=== PATIENT | female | born 1940 | race Caucasian/White ===

== ENCOUNTER → 2017-03-30 | Outpatient (CLI) | payer MEDICARE ==
--- NOTE | 2017-03-31 01:02 | BD ---
EXAMINATION TYPE: MG DEXA axial skeleton. DATE OF EXAM: 03/30/2017 9:12 AM COMPARISON: NONE CLINICAL HISTORY: 69-year-old female postmenopausal screening Height: 66 IN Weight: 200 LBS FRAX RISK QUESTIONS: Alcohol (3 or more units per day): NO Family History (Parent hip fracture): NO Glucocorticoids (More than 3mos): NO (Ex: prednisone, prednisolone, methylprednisolone, dexamethasone, and hydrocortisone). History of Fracture in Adulthood: TOE FX AGE 59 Secondary Osteoporosis: 1. Type 1 Diabetes: NO 2. Hyperthyroidism: NO 3. Menopause before 45: NO 4. Malnutrition: NO 5. Chronic liver disease: NO Rheumatoid Arthritis: NO Current Tobacco Use: NO RISK FACTORS HISTORY OF: Surgery to Hip(KLEBER): When: AGE 49 Other Fractures since Age 49: YES TOE FX When: AGE 59 Active: YES Diet low in dairy products/other sources of calcium: YES Postmenopausal woman: AGE 49 Lost more than 2 inches in height since high school: YES LOST 2 3/4" MEDICATIONS: Additional Medications: CALCIUM, VIT D, aleve, OSTEO BIFLEX, PANTOPRAZOLE, FLUDROCORTISONE, NADOLOL, BABY ASPIRIN, MAGNESIUM, EXAM MEASUREMENTS: Bone mineral densitometry was performed using the [employer] System. Bone mineral density as measured about the Lumbar spine is: ----- L1-L4(G/cm2): 1.217 T Score Values are as follows: ----- L2: 0.4 ----- L3: 0.6 ----- L4: 0.2 ----- L1-L4: 0.3 Bone mineral density has: Increased 6.3% since study of: 03/26/15 PT HAD KLEBER HIP REPLACEMENT AGE 49 IMPRESSION: Normal bone mineral density as measured by T score values in the lumbar spine. Measurements were not taken at the hips due to prior bilateral hip surgery. Consider repeating this study in 5 years or axel ner as clinically indicated. NOTE: T-SCORE=SD OF THE YOUNG ADULT MEAN.
--- NOTE | 2017-03-31 11:44 | MM ---
Reason for exam: screening (asymptomatic). Last mammogram was performed 1 year ago. History: Patient is postmenopausal and history of other cancer. Family history of premenopausal breast cancer in paternal aunt at age 40. Took estrogen for 5 years. Took progesterone for 5 years. Physical Findings: A clinical breast exam by your physician is recommended on an annual basis and results should be correlated with mammographic findings. MG 3D Screening Mammo W/Cad Bilateral CC and MLO view(s) were taken. Prior study comparison: March 27, 2016, bilateral MG 3d screening mammo w/cad. March 26, 2015, bilateral MG screening mammo w CAD. There are scattered fibroglandular densities. There is no discrete abnormality. No significant changes when compared with prior studies. ASSESSMENT: Negative, BI-RAD 1 RECOMMENDATION: Routine screening mammogram of both breasts in 1 year.
== END | disposition home or self-care (01) ==
LOC: RADMAMWWP 09:07
PROVIDERS: ATTEND Family Medicine
DX: Z12.31 Encounter for screening mammogram for malignant neoplasm of breast (principal); N95.1 Menopausal and female climacteric states
CPT/HCPCS: 77080; 77063; G0202

== ENCOUNTER → 2017-06-02 | Outpatient (CLI) | payer MEDICARE ==
--- NOTE | 2017-06-02 15:26 | US ---
EXAMINATION TYPE: US kidneys/renal and bladder DATE OF EXAM: 06/02/2017 COMPARISON: NONE CLINICAL HISTORY: N39.0 Acute urinary tract infection. Hx of UTI EXAM MEASUREMENTS: Right Kidney: 9.6 x 4.9 x 4.6 cm Left Kidney: 1.0 x 4.7 x 5.7 cm Right Kidney: wnl as visualized Left Kidney: wnl as visualized Bladder: moderately distended, wnl as visualized Bilateral Jets seen There is no evidence for hydronephrosis at this point in time. No nephrolithiasis is seen. No angi s are identified. The urinary bladder is anechoic. Bilateral ureteral jets are seen. IMPRESSION: NORMAL RENAL ULTRASOUND.
== END | disposition home or self-care (01) ==
LOC: RADUSWWP 14:53
PROVIDERS: ATTEND Family Medicine
DX: N39.0 Urinary tract infection, site not specified (principal)
CPT/HCPCS: 76770

== ENCOUNTER → 2017-06-08 | Outpatient (CLI) | payer MEDICARE ==
--- NOTE | 2017-06-08 10:22 | XR ---
EXAMINATION TYPE: XR cervical spine limited DATE OF EXAM: 06/08/2017 TECHNIQUE: Frontal, lateral, and open mouth view of the cervical spine are obtained. HISTORY: M54.2 cervicalgia COMPARISON: None FINDINGS: The cervical spine is visualized in its entirety from C1 thru the top of T1 level, there i s slight grade 1 anterolisthesis of C7 on T1 without evidence of acute fracture or dislocation. The pre-vertebral soft tissue appears within normal limits. The C1-C2 articulation is suboptimally evalu ated even despite 2 attempts at open mouth view due to osseous overlap. Vertebral body heights are maintained. There is moderate disc space narrowing C2-C3 level. There is m oderate to severe disc space narrowing with mild spurring at C6-C7 level. There is partial visualizat ion of dual lead pacemaker in the upper thorax. Osseous structures are somewhat demineralized. IMPRESSION: Demineralization and multilevel degenerative change as detailed above.
== END | disposition home or self-care (01) ==
LOC: RADXRMAIN 09:48
PROVIDERS: ATTEND Physician Assistant
DX: M47.812 Spondylosis without myelopathy or radiculopathy, cervical region (principal); M81.0 Age-related osteoporosis without current pathological fracture
CPT/HCPCS: 72040

== ENCOUNTER → 2017-07-28 | Outpatient (CLI) | payer MEDICARE ==
--- NOTE | 2017-07-28 10:59 | US ---
EXAMINATION TYPE: US thyroid st tissue head/neck DATE OF EXAM: 07/28/2017 COMPARISON: Thyroid ultrasound May 20, 2016 CLINICAL HISTORY: E04.1 THYROID NODULE. GLAND SIZE: Right Lobe: 5.2 x 2.0 x 1.8 cm Overall Parenchyma: heterogenous Left Lobe: 4.3 x 2.0 x 2.1 cm Overall Parenchyma: heterogeneous Isthmus Thickness: 0..5 cm NODULES RIGHT: # of nodules measured on right: 2 largest of multiple 1. 0.5 X 0.5 x 0.4 cm hypoechoic cystic nodule at the lower pole with well-defined margins. This n odule is wider than tall and shows no intranodular vascularity. Prior size: 0.4 x 0.3 x 0.4 cm 2. 1.8 X 1.2 x 1.0 cm hypoechoic mixed nodule at the upper pole with irregular margins; central calc ification is noted. This nodule is wider than tall and shows intranodular vascularity. Prior size: 1.6 x 1.0 x 0.8 cm LEFT: # of nodules measured on left: 3 largest of multiple 1. 1.7 X 1.2 x 1.2 cm hypoechoic mixed nodule at the mid pole with well defined margins; present wi th microcalcifications. This nodule is wide as is tall and shows intranodular vascularity. Prior size: 1.6 x 1.0 x 0.8 cm 2. 0.6 X 0.5 x 0.5 cm hypoechoic mixed nodule at the upper medial pole with well-defined margins. T his nodule is wide as is tall and shows no intranodular vascularity. Prior size: 0.6 x 0.3 x 0.4 cm 3. 0.5 X 0.4 x 0.3 cm hypoechoic cystic nodule at the upper lateral pole with well-defined margins; present with microcalcification. This nodule is wider than tall and shows no intranodular vascularit y. Prior size: 0.5 x 0.4 x 0.6 cm ISTHMUS: # of nodules measured in the isthmus: 2 of multiple 1. 0.4 X 0.2 x 0.3 cm hypoechoic solid nodule at the lower right pole with well-defined margins. T his nodule is taller than wide and shows no intranodular vascularity. Prior size: no prior 2. 0.2 X 0.2 x 0.2 cm hypoechoic cystic nodule at the lower left pole with well-defined margins; int errupted peripheral calcification. This nodule is wide as is tall and shows no intranodular vascular ity. Prior size: no prior Bilateral neck scanned, no evidence of lymphadenopathy. Thyroid gland remains normal in size and heterogeneous in appearance with multiple nodules identified bilaterally. Largest nodules are stable in size and appearance and have been sampled in June 2016. IMPRESSION: Overall stable findings, multiple nodules redemonstrated. No new greater than 1 cm solid or cystic no dules are identified.
== END | disposition home or self-care (01) ==
LOC: RADUSWWP 09:36
PROVIDERS: ATTEND Surgery
DX: E04.2 Nontoxic multinodular goiter (principal)
CPT/HCPCS: 36415; 76536; 84439; 84443

== ENCOUNTER → 2018-04-02 | Outpatient (CLI) | payer MEDICARE ==
--- NOTE | 2018-04-06 10:19 | MM ---
Reason for exam: screening (asymptomatic). Last mammogram was performed 1 year ago. History: Patient is postmenopausal and history of other cancer. Family history of premenopausal breast cancer in paternal aunt at age 40. Took estrogen for 5 years. Took progesterone for 5 years. Physical Findings: A clinical breast exam by your physician is recommended on an annual basis and results should be correlated with mammographic findings. MG 3D Screening Mammo W/Cad Bilateral CC and MLO view(s) were taken. Prior study comparison: March 30, 2017, bilateral MG 3d screening mammo w/cad. March 27, 2016, bilateral MG 3d screening mammo w/cad. There are scattered fibroglandular densities. Pacemaker generator left side. No significant changes when compared with prior studies. ASSESSMENT: Negative, BI-RAD 1 RECOMMENDATION: Routine screening mammogram of both breasts in 1 year.
== END | disposition home or self-care (01) ==
LOC: RADMAMWWP 15:10
PROVIDERS: ATTEND Family Medicine
DX: Z12.31 Encounter for screening mammogram for malignant neoplasm of breast (principal)
CPT/HCPCS: 77063; 77067

== ENCOUNTER → 2018-08-03 | Outpatient (CLI) | payer MEDICARE ==
[2018-08-03 08:08] LABS: HCT 39.1 % (34.0-46.0); HGB 12.6 gm/dL (11.4-16.0); MCH 29.7 pg (25.0-35.0); MCHC 32.2 g/dL (31.0-37.0); MCV 92.2 fL (80.0-100.0); Mean Platelet Volume 7.6; Platelet Count 228 k/uL (150-450); RBC 4.23 m/uL (3.80-5.40); RDW 13.5 % (11.5-15.5); WBC 5.6 k/uL (3.8-10.6)
[2018-08-03 08:17] LABS: Appearance,Urine Cloudy (Clear); Bacteria,Urine Rare /hpf; Bilirubin,Urine Negative (Negative); Blood,Urine Small (Negative); Color,Urine Yellow; Glucose,Urine (UA) Negative (Negative); Ketones,Urine Negative (Negative); Leukocyte Esterase,Urine Large (Negative); Mucus,Urine Occasional /hpf; Nitrite,Urine Negative (Negative); Protein,Urine Negative (Negative); Prothrombin Time 9.6 sec (9.0-12.0); RBC,Urine 8 /hpf (0-5); Specific Gravity,Urine 1.012 (1.001-1.035); Squamous Epithelial Cell,Urine 6 /hpf (0-4); Urobilinogen,Urine <2.0 mg/dL (<2.0); WBC,Urine 69 /hpf (0-5)
[2018-08-03 08:19] LABS: Partial Thromboplastin Time 21.6 sec (22.0-30.0)
[2018-08-03 08:44] LABS: ALT 17 U/L (9-52); AST 22 U/L (14-36); Albumin 3.6 g/dL (3.5-5.0); Alkaline Phosphatase 90 U/L (38-126); Anion Gap 8 mmol/L; Blood Urea Nitrogen 19 mg/dL (7-17); Calcium 9.2 mg/dL (8.4-10.2); Carbon Dioxide 27 mmol/L (22-30); Chloride 109 mmol/L (98-107); Glucose 92 mg/dL (74-99); Potassium 4.3 mmol/L (3.5-5.1); Sodium 144 mmol/L (137-145); Total Bilirubin 0.6 mg/dL (0.2-1.3); Total Protein 6.3 g/dL (6.3-8.2)
== END | disposition home or self-care (01) ==
LOC: LABWHC1 06:37
PROVIDERS: ATTEND Orthopaedic Surgery
DX: Z01.812 Encounter for preprocedural laboratory examination (principal); Z79.01 Long term (current) use of anticoagulants
CPT/HCPCS: 36415; 80053; 81001; 85027; 85610; 85730; 87070

== ENCOUNTER 2018-08-17 09:12 | Inpatient (IN) | payer MEDICARE ==
[2018-08-09 11:44] VITALS: BMI 29.6
[~2018-08-17 09:12] MED LIST: ACETAMINOPHEN TAB 500 MG TAB PO ONE; CLINDAMYCIN 900 MG in DEXTROSE 5% IN WATER 50 ML IVPB ONE; DEXAMETHASONE SOD PHOSPHATE 10 MG/ML 1 ML VIAL IV ONE; HYDROmorphone 0.5 MG/0.5 ML SYRINGE IVP PRN; LIDOCAINE 1% 20 ML VIAL (10MG/ML) FOR IV START INTRADERMA PRN; MELOXICAM 7.5 MG TAB PO ONE; MIDAZOLAM 2 MG/2 ML VIAL IV PRN; ONDANSETRON 4 MG/2 ML VIAL IVP ONE; SCOPOLAMINE 1.5MG/72HR PATCH TRANSDERM ONE; TRANEXAMIC ACID 1,000 MG in SODIUM CHLORIDE 0.9% 50 ML IVPB ONE
[2018-08-17] MEDS: LACTATED RINGERS 1,000 ML IV SCH (09:41)
[2018-08-17] MEDS ORDERED: ROPIVACAINE 1,100 MG, SODIUM CHLORIDE 0.9% 330 ML MISCELLANE PRN ×2 (10:22)
--- NOTE | 2018-08-17 10:24 | P.ONQ ---
Anesthesiology Proc Note - PNB - Peripheral Nerve Block Performed Right Adductor Canal Infusion Time Out Performed: Yes Procedure Start Time: 10:06 Procedure Stop Time: :19 Indication: Acute Post-Operative Pain, Requested by physician (Dr North) Sedation Type: Sedate with meaningful contact maintained Preparation: Sterile Prep Position: Supine Catheter: Indwelling Needle Types: On-Q, Touhy Needle Size: 100mm (4") Needle Gauge: 20 Technique: Ultrasound Injectate: 0.5% Ropivacaine (see comment for volume) (30 mls) Blood Aspirated: No Pain Paresthesia on Injection Noted: No Resistance on Injection: Normal Events: Uneventful and Well Tolerated
[2018-08-17] MEDS: ROPIVACAINE 246.25 MG, EPINEPHrine 0.5 MG, KETOROLAC 30 MG, cloNIDine HCL/PF 80 MCG, WA... MISCELLANE ONE ×10 (10:49→12:13)
[2018-08-17] MEDS ORDERED: HYDROmorphone 1 MG/ML 1 ML SYRINGE IVP PRN ×3 (11:30)
[2018-08-17] MEDS ORDERED: BISACODYL 10 MG SUPP RECTAL PRN (11:30)
[2018-08-17] MEDS ORDERED: DIAZEPAM 5 MG TAB PO PRN ×2 (11:30)
[2018-08-17] MEDS ORDERED: hydrOXYzine PAMOATE 25 MG CAP PO PRN (11:30)
[2018-08-17] MEDS ORDERED: MAGNESIUM HYDROXIDE 2,400 MG/10 ML CUP PO PRN (11:30)
[2018-08-17] MEDS ORDERED: NA PHOS,M-B/NA PHOS,DI-BA 133 ML ENEMA RECTAL PRN (11:30)
[2018-08-17] MEDS ORDERED: NALOXONE 0.4 MG/ML 1 ML VIAL IV PRN (11:30)
[2018-08-17] MEDS ORDERED: ONDANSETRON 4 MG/2 ML VIAL IVP PRN (11:30)
[2018-08-17] MEDS ORDERED: CLINDAMYCIN 900 MG in DEXTROSE 5% IN WATER 50 ML IVPB SCH ×2 (12:00)
[2018-08-17] MEDS ORDERED: CLINDAMYCIN 1,800 MG in SODIUM CHLORIDE 0.9% IRRIGATIO 3,000 ML IRRIGATION ONE (12:11)
[2018-08-17] MEDS ORDERED: LACTATED RINGERS 1,000 ML IV ONE ×2 (12:57)
--- NOTE | 2018-08-17 13:06 | P.OP ---
Date of Procedure: 08/17/18 Preoperative Diagnosis: Severe osteoarthritis right knee Postoperative Diagnosis: Severe osteoarthritis right knee Procedure(s) Performed: Right total knee arthroplasty Implants: Horton [employer]hew Oxinium femoral component size 6, right Horton & Nephew Destinee II right nonporous tibial baseplate size 5 Horton [employer] Nephew size 11 mm Legion XLPE dished articular insert, size 5-6 Horton [employer] Destinee II resurfacing patellar component, 32 mm All components were cemented using Adry bone cement.. The articulation is Oxinium on polyethylene. Anesthesia: spinal Surgeon: Tom North Bell Cleaner #1: Violeta Torres Estimated Blood Loss (ml): 50 Pathology: other (Bone and cartilage) Condition: stable Disposition: PACU Indications for Procedure: After failure of conservative treatment we discussed the surgical and nonsurgical treatment options at length. Patient wishes to proceed with a total knee arthroplasty. Complications specific to this procedure were discussed at length, including but not limited to infection, bleeding, stiffness , and nerve injury. Patient is aware of all these complications and informed consent was obtained Operative Findings: The operative findings are consistent with severe osteoarthritis of the right knee Description of Procedure: Patient was seen in the preoperative area consent was reviewed and operative site was marked with a skin marker. An adductor canal pain catheter was placed by anesthesia in the preoperative area. Patient was then brought to the operating room and given preoperative antibiotics intravenously. A spinal anesthetic was administered by the anesthesia department. A tourniquet was placed on the upper thigh and the lower extremity was prepped and draped in usual sterile fashion. A gram of transexamic acid was given. A universal timeout was then performed which confirmed the patient's name, surgical site, ALLERGIES, and consent. The lower extremity was then exsanguinated and tourniquet was inflated to 250 mmHg. A standard and anterior midline approach to the knee was performed. The skin and subcutaneous tissue was dissected down to the patellar tendon. A medial parapatellar arthrotomy was then performed. The knee was then extended, the patellar was everted, and the knee was again flexed. Anterior horns of both menisci were excised, and a release was performed to the posterior medial aspect of the knee. On gross visual inspection, there was complete loss of articular cartilage in the medial and patellofemoral joint spaces. There was also significant cartilage damage in the lateral compartment. There were multiple periarticular osteophytes which were then removed with a Ronguer. The femoral canal was then opened with the appropriate drill, and the intramedullary femoral cutting guide was then placed and set for 4 of valgus. The distal femoral cutting block was then pinned in place, and the distal femur was then cut. The cutting block was then removed and the cut was checked for flatness. Next, the sizing guide was then placed and set for 3 external rotation based off of the epicondylar axis and Whitesides line. After the femur was sized, the appropriate 4-in-1 cutting block was then pinned in place. The anterior condyles were cut without notching. The posterior and chamfer cuts were performed while protecting the collateral ligaments. The cutting block was then removed, and the femoral canal was plugged with autologous bone. Attention was then directed to the tibia. The remaining ACL was removed with a Ronguer, and the tibia was then gently subluxed forward with a large bent knee retractor. Any remaining menisci was excised. The posterior lateral corner was cauterized in order to cauterize the lateral geniculate artery. The extra medullary tibial cutting guide was then placed, set for the appropriate rotation , slope, and depth of resection. The proximal tibia cutting guide was then pinned in place. Proximal tibia was then cut and sized. Next trials were then placed with the appropriate-sized insert. The knee was able to fully extend and flex to 130 and was stable throughout all range of motion. The knee was then extended, patella everted. Patella was then measured, and then using an osteotomy guide, the patella was cut at the appropriate level. The patella was then measured and drilled and the patella trial was then placed. The knee was then taken through range of motion with the patella trial and the patella tracked normally. The knee was then extended patella trial was then removed and the patella was everted. Knee was then flexed and lug holes were drilled through the femoral trial and the femoral trial was then removed. The tibial was then exposed, and the tibial broach guide was then pinned in place after it was set for the appropriate rotation to allow for the most coverage without overhang. The tibia was then reamed and broached. The cut surfaces of bone were then irrigated with pulsatile lavage. The posterior structures were injected with the ropivacaine solution. The knee was also irrigated with Irrisept solution. The components were then opened, the cement was mixed, and the components were then cemented in place. The cement was allowed to harden with the knee in full extension. While the cement was hardening, the remaining soft tissues were then injected with a ropivacaine solution, which consisted of 246.25 mg of ropivacaine, 0.5 mg of epinephrine, 30 mg of Toradol, 80 g of clonidine, and 48.45 mL of sterile water, for a total of 100 mL of fluid injected. After the cemented hardened. The tourniquet was released, and hemostasis was obtained. A second gram of transexamic acid was given. The knee was again irrigated. The knee was again taken through range of motion and found to be stable throughout all range of motion of 0-130 , and the patella tracked normally. The fascia was then closed with #2 strata fix suture. The subcutaneous tissue was closed with 3-0 Vicryl and 3-0 strata fix. Dermabond glue was used for the skin and placed with the knee in flexion. The patient was placed in a sterile silver dressing. Patient was then transferred to recovery room in stable condition. The engineering assistant HERNAN Hoyos was required due the complexity surgery and the need for a skilled nurse practitioner physician assistant. She assisted in positioning, draping, retraction, and closure of the wound.
--- NOTE | 2018-08-17 14:02 | XR ---
EXAMINATION TYPE: XR knee limited RT DATE OF EXAM: 08/17/2018 COMPARISON: NONE HISTORY: 78-year-old female evaluation for postoperative abnormality and alignment TECHNIQUE: Multiple 2 views FINDINGS: Images show placement of right total knee arthroplasty. Both distal femoral and proximal tibial compo nents of the prosthesis are well seated without periprosthetic fracture. Alignment grossly anatomic. There is anterior soft tissue swelling with soft tissue air as well as joint effusion and intra-artic ular air compatible with recent operation. IMPRESSION: Uncomplicated postoperative appearance right total knee arthroplasty.
[2018-08-17] MEDS: SODIUM CHLORIDE 0.9% 1,000 ML IV SCH ×2 (15:51→20:46)
[2018-08-17] MEDS: HYDROcodone/APAP 5-325MG 1 EACH TAB PO PRN ×2 (16:23→22:07)
--- NOTE | 2018-08-17 17:38 | P.CONS ---
History of Present Illness - History of Present Illness 78-year-old female is postoperative for right knee that total replacement. Patient awake and alert and comfortable at this time. Patient noted to have coronary disease with a a pacemaker, GERD osteoarthritis Review of Systems Musculoskeletal: right: knee pain Past Medical History Past Medical History: Eye Disorder, GERD/Reflux, Myocardial Infarction ([place]), Osteoarthritis (OA), Thyroid Disorder Additional Past Medical History / Comment(s): hiatal hernia, sodium imbalance, dry eyes, pacemaker Last Myocardial Infarction Date:: unknown History of Any Multi-Drug Resistant Organisms: None Reported Past Surgical History: Joint Replacement, Orthopedic Surgery, Pacemaker Additional Past Surgical History / Comment(s): alice hip replacements, rt hip revision, alice foot surgeries, cataract surg., skin lesions removed from nose and back Past Anesthesia/Blood Transfusion Reactions: Motion Sickness Type of Cardiac Device: Permanent Pacemaker Device Placement Date:: 12/27/11 Past Psychological History: No Psychological Hx Reported Smoking Status: Former smoker Past Alcohol Use History: Occasional Additional Past Alcohol Use History / Comment(s): quit smoking in 1961 Past Drug Use History: None Reported - Past Family History Mother Family Medical History: No Reported History Medications and Allergies Home Medications Medication Instructions Recorded Confirmed Type Calcium Carbonate/Vitamin D3 1 tab PO DAILY 11/20/14 08/17/18 History [Calcium 600 + Vit D Tablet] Cholecalciferol [Vitamin D3] 1,000 unit PO DAILY 11/20/14 08/17/18 History Fludrocortisone [Florinef] 0.1 mg PO DAILY 11/20/14 08/17/18 History Naproxen Sodium [Aleve] 220 mg PO QAM 11/20/14 08/17/18 History Nadolol [Corgard] 20 mg PO DAILY 06/25/15 08/17/18 History Acetaminophen [Tylenol] 1,000 mg PO DAILY 03/24/16 08/17/18 History Aspirin 81 mg PO DAILY 06/26/16 08/17/18 History Glucosamine/Chondr Means A Sod [Osteo 1 tab PO BID 08/09/18 08/17/18 History Bi-Flex Caplet] Pantoprazole [Protonix] 40 mg PO DAILY 08/09/18 08/17/18 History Propylene Glycol/Peg 400/Pf 1 dropper BOTH EYES DAILY 08/09/18 08/17/18 History [Systane 0.3-0.4% Eye Drops] Allergies Allergy/AdvReac Type Severity Reaction Status Date / Time cephalexin Allergy SOB Verified 08/17/18 15:20 Physical Exam Vitals: Vital Signs Temp Pulse Pulse Resp BP Pulse Ox 08/17/18 15:45 65 142/81 08/17/18 15:30 68 121/66 08/17/18 15:15 97.4 F L 68 12 139/79 95 08/17/18 14:30 67 16 129/65 96 08/17/18 14:15 65 16 130/67 96 08/17/18 14:00 63 16 138/63 100 08/17/18 13:45 68 16 130/60 100 08/17/18 13:32 96.8 F L 60 16 122/57 98 08/17/18 10:19 55 L 16 184/77 98 08/17/18 09:25 97.9 F 58 L 16 139/73 97 Intake and Output 08/17/18 08/17/18 08/17/18 06:59 14:59 22:59 Intake Total 1657 Output Total 250 Balance 1407 Intake: IV 1657 Output: Urine 200 Estimated Blood Loss 50 Other: Weight 88.451 kg - Constitutional General appearance: mild distress - EENT Eyes: PERRLA Ears: bilateral: normal - Neck Neck: normal ROM - Respiratory Respiratory: bilateral: CTA - Cardiovascular Rhythm: regular - Gastrointestinal General gastrointestinal: soft - Integumentary Integumentary: normal - Neurologic Neurologic: CNII-XII intact - Psychiatric Psychiatric: A&O x's 3, appropriate affect, intact judgment & insight Assessment and Plan Plan: Assessment Right knee osteoarthritis with total knee replacement History of coronary disease with [place] and pacemaker GERD Sodium imbalance Hypothyroidism Plan We'll monitor patient for change in condition
[2018-08-17] MEDS: CLINDAMYCIN 900 MG in DEXTROSE 5% IN WATER 50 ML IVPB SCH ×2 (17:50)
[2018-08-17] MEDS: ASPIRIN 325 MG TAB PO SCH (20:46)
[2018-08-17] MEDS: SENNOSIDES-DOCUSATE SODIUM 1 EACH TAB PO SCH (20:46)
[2018-08-18] MEDS: CLINDAMYCIN 900 MG in DEXTROSE 5% IN WATER 50 ML IVPB SCH ×2 (00:05)
[2018-08-18] MEDS: HYDROcodone/APAP 5-325MG 1 EACH TAB PO PRN ×4 (04:42→22:35)
[2018-08-18] MEDS: LACTATED RINGERS 1,000 ML IV SCH (05:17)
--- NOTE | 2018-08-18 06:01 | P.PN ---
Progress Note - Text Progress Note Date: 08/18/18 78 yo female status post left total knee replacement. Patient received the adductor canal catheter. Ropivacaine 0.2% at 8 mls/hr. Patient was seen today at 6:00 AM. Patient had a good night sleep. Adequate pain control. VAS score of 0/10 no complains overnight. Assessment and plan: patient will be sent home with the adductor canal pump. Adequate pain control.
[2018-08-18 07:58] LABS: ALT 23 U/L (9-52); AST 22 U/L (14-36); Albumin 2.9 g/dL (3.5-5.0); Alkaline Phosphatase 73 U/L (38-126); Anion Gap 6 mmol/L; Blood Urea Nitrogen 15 mg/dL (7-17); Calcium 8.4 mg/dL (8.4-10.2); Carbon Dioxide 27 mmol/L (22-30); Chloride 108 mmol/L (98-107); Glucose 90 mg/dL (74-99); Potassium 3.9 mmol/L (3.5-5.1); Sodium 141 mmol/L (137-145); Total Bilirubin 0.4 mg/dL (0.2-1.3); Total Protein 5.3 g/dL (6.3-8.2)
[2018-08-18 08:07] LABS: Basophils % (A) 0 %; Eosinophils # (A) 0.1 k/uL (0-0.7); Eosinophils % (A) 1 %; HCT 34.3 % (34.0-46.0); HGB 10.7 gm/dL (11.4-16.0); Lymphocytes # (A) 1.7 k/uL (1.0-4.8); Lymphocytes % (A) 15 %; MCH 29.6 pg (25.0-35.0); MCHC 31.3 g/dL (31.0-37.0); MCV 94.7 fL (80.0-100.0); Mean Platelet Volume 7.4; Monocytes # (A) 0.5 k/uL (0-1.0); Monocytes % (A) 4 %; Neutrophils # (A) 8.7 k/uL (1.3-7.7); Neutrophils % (A) 78 %; Platelet Count 203 k/uL (150-450); RBC 3.62 m/uL (3.80-5.40); RDW 13.3 % (11.5-15.5); WBC 11.1 k/uL (3.8-10.6)
[2018-08-18] MEDS: ASPIRIN 325 MG TAB PO SCH ×2 (08:24→20:07)
[2018-08-18] MEDS: ARTIFICIAL TEARS-HYPROMELLOSE DROPS 15 ML BTL BOTH EYES SCH (08:24)
[2018-08-18] MEDS: PANTOPRAZOLE 40 MG TABLET PO SCH (08:24)
[2018-08-18] MEDS: FLUDROCORTISONE 0.1 MG TAB PO SCH (08:24)
[2018-08-18] MEDS: MELOXICAM 7.5 MG TAB PO SCH (08:25)
[2018-08-18] MEDS: NADOLOL 20 MG TAB PO SCH (08:25)
--- NOTE | 2018-08-18 09:04 | P.DS ---
Providers Date of admission: 08/17/18 09:12 Expected date of discharge: 08/18/18 Attending physician: Tom North Consults: 08/17/18 11:30 Consult Physician Routine Consulting Provider: Inderjit Snatos Consult Reason/Comments: medical management Do you want consulting provider notified?: Yes Primary care physician: Inderjit Santos - Discharge Diagnosis(es) (1) Primary osteoarthritis of right knee Current Visit: Yes Status: Acute (2) S/P total knee arthroplasty Current Visit: Yes Status: Acute Hospital Course: This is a 78-year-old female with known history of degenerative arthritis of the right knee. The patient presents for evaluation. After discussion and consideration patient elects to proceed with total knee arthroplasty. The patient is seen preoperatively by Dr. North and medically cleared for surgery by their primary care physician. Patient is admitted to [facility] on 08/18/2018 for total knee arthroplasty. The procedures performed without complication or sequelae. The patient is doing well postoperatively. Labs and vital signs are stable on day of discharge. On day of discharge patient's knee incision is healing well. There is minimal erythema. There is no drainage noted at this time. There is minimal soft tissue swelling to the knee. Patient has full foot and ankle motion without difficulty or pain. Neurovascular status to the right lower extremity is intact. Patient is discharged home in good condition. Please see med rec for accurate list of home medications. Plan - Discharge Summary Discharge Rx Participant: Yes New Discharge Prescriptions: New Aspirin 325 mg PO BID #60 tab HYDROcodone/APAP 5-325MG [[place] 5-325] 1 - 2 tab PO Q4-6H PRN #84 tab PRN Reason: Pain Sennosides [Senokot] 1 tab PO BID #60 tablet No Action Fludrocortisone [Florinef] 0.1 mg PO DAILY Calcium Carbonate/Vitamin D3 [Calcium 600 + Vit D Tablet] 1 tab PO DAILY Naproxen Sodium [Aleve] 220 mg PO QAM Cholecalciferol [Vitamin D3] 1,000 unit PO DAILY Nadolol [Corgard] 20 mg PO DAILY Acetaminophen [Tylenol] 1,000 mg PO DAILY Aspirin 81 mg PO DAILY Propylene Glycol/Peg 400/Pf [Systane 0.3-0.4% Eye Drops] 1 dropper BOTH EYES DAILY Pantoprazole [Protonix] 40 mg PO DAILY Glucosamine/Chondr Means A Sod [Osteo Bi-Flex Caplet] 1 tab PO BID Discharge Medication List Calcium Carbonate/Vitamin D3 [Calcium 600 + Vit D Tablet] 1 tab PO DAILY [History] Cholecalciferol [Vitamin D3] 1,000 unit PO DAILY 11/20/14 [History] Fludrocortisone [Florinef] 0.1 mg PO DAILY 11/20/14 [History] Naproxen Sodium [Aleve] 220 mg PO QAM 11/20/14 [History] Nadolol [Corgard] 20 mg PO DAILY 06/25/15 [History] Acetaminophen [Tylenol] 1,000 mg PO DAILY 03/24/16 [History] Aspirin 81 mg PO DAILY 06/26/16 [History] Glucosamine/Chondr Means A Sod [Osteo Bi-Flex Caplet] 1 tab PO BID 08/09/18 [ History] Pantoprazole [Protonix] 40 mg PO DAILY 08/09/18 [History] Propylene Glycol/Peg 400/Pf [Systane 0.3-0.4% Eye Drops] 1 dropper BOTH EYES DAILY 08/09/18 [History] Aspirin 325 mg PO BID #60 tab 08/18/18 [Rx] HYDROcodone/APAP 5-325MG [[place] 5-325] 1 - 2 tab PO Q4-6H PRN #84 tab 08/18/18 [ Rx] Sennosides [Senokot] 1 tab PO BID #60 tablet 08/18/18 [Rx] Follow up Appointment(s)/Referral(s): Tom North DO [Doctor of Osteopathic Medicine] - 2 Weeks Ambulatory/Diagnostic Orders: Continuous Passive Motion (CPM) Machine [DME.AMB1] Time Frame: 3 Weeks, Location : None Selected Activity/Diet/Wound Care/Special Instructions: Weightbearing as tolerated with a walker CPM 5-6h daily Leave dressing intact. May be removed by home care nurse in 10 days. May shower with dressing on. Please call [facility] with any questions or concerns, Discharge Disposition: HOME WITH HOME HEALTH SERVICES
[2018-08-18] MEDS: CALCIUM CARB-VIT D 500MG-200UN 1 EACH TAB PO SCH (11:20)
--- NOTE | 2018-08-18 12:39 | P.PN ---
Subjective Patient resting in bed states adequate pain control. Patient medically stable for discharge Objective - Vital Signs Vital signs: Vital Signs Temp 98.3 F 08/18/18 07:10 Pulse 64 08/18/18 07:10 Resp 18 08/18/18 07:10 BP 130/71 08/18/18 07:10 Pulse Ox 95 08/18/18 07:10 Intake & Output 08/17/18 08/18/18 08/18/18 18:59 06:59 18:59 Intake Total 1657 1845 350 Output Total 250 200 Balance 1407 1845 150 Weight 88.451 kg Intake: IV 1657 Intake, IV Titration 765 Amount Clindamycin 900 mg In 50 Dextrose 5% in Water 50 ml @ 50 mls/hr IVPB Q6HR [facility] Rx#:[id number] Sodium Chloride 0.9% 1, 715 000 ml @ 65 mls/hr IV . [id number] [facility] Rx#:[id number] Oral 1080 350 Output: Urine 200 200 Estimated Blood Loss 50 Other: Voiding Method Toilet # Voids 3 - Constitutional General appearance: Present: mild distress - EENT Eyes: Present: PERRLA Ears: bilateral: normal - Neck Neck: Present: normal ROM - Respiratory Respiratory: bilateral: CTA - Cardiovascular Rhythm: regular - Gastrointestinal General gastrointestinal: Present: soft - Integumentary Integumentary: Present: normal - Neurologic Neurologic: Present: CNII-XII intact - Psychiatric Psychiatric: Present: A&O x's 3, appropriate affect, intact judgment & insight - Labs CBC & Chem 7: 08/18/18 06:33 08/18/18 06:33 Labs: Abnormal Lab Results - Last 24 Hours (Table) 08/18/18 08/18/18 Range/Units 06:33 06:33 WBC 11.1 H (3.8-10.6) k/uL RBC 3.62 L (3.80-5.40) m/uL Hgb 10.7 L (11.4-16.0) gm/dL Neutrophils # 8.7 H (1.3-7.7) k/uL Chloride 108 H (98-107) mmol/L Total Protein 5.3 L (6.3-8.2) g/dL Albumin 2.9 L (3.5-5.0) g/dL Assessment and Plan Assessment: Assessment Osteoarthritis right knee with right arthroplasty History of coronary disease with [place] GERD Sodium imbalance Hypothyroidism History of pacemaker Plan Patient medically stable for discharge
[2018-08-18] MEDS ORDERED: SODIUM CHLORIDE 0.9% 500 ML IV ONE (13:41)
[2018-08-18] MEDS: SODIUM CHLORIDE 0.9% 1,000 ML IV SCH ×2 (16:31→20:07)
[2018-08-18] MEDS: SENNOSIDES-DOCUSATE SODIUM 1 EACH TAB PO SCH (20:07)
[2018-08-19] MEDS: HYDROcodone/APAP 5-325MG 1 EACH TAB PO PRN ×2 (04:32→11:18)
[2018-08-19] MEDS: LACTATED RINGERS 1,000 ML IV SCH (04:50)
[2018-08-19 07:43] VITALS: RESP 16
[2018-08-19] MEDS: FLUDROCORTISONE 0.1 MG TAB PO SCH (08:56)
[2018-08-19] MEDS: MELOXICAM 7.5 MG TAB PO SCH (08:56)
[2018-08-19] MEDS: PANTOPRAZOLE 40 MG TABLET PO SCH (08:56)
[2018-08-19] MEDS: ASPIRIN 325 MG TAB PO SCH (08:57)
[2018-08-19] MEDS: ARTIFICIAL TEARS-HYPROMELLOSE DROPS 15 ML BTL BOTH EYES SCH (08:58)
[2018-08-19] MEDS: NADOLOL 20 MG TAB PO SCH (08:58)
--- NOTE | 2018-08-19 11:14 | P.PN ---
Subjective 78-year-old female had a near-syncopal episode yesterday afternoon. Feels weak at this time. Noted to be hypotensive IV fluids restarted cardiology consultation ordered Objective - Vital Signs Vital signs: Vital Signs Temp 97.9 F 08/19/18 07:00 Pulse 63 08/19/18 07:00 Resp 16 08/19/18 07:00 BP 112/64 08/19/18 07:00 Pulse Ox 94 L 08/19/18 07:00 Intake & Output 08/18/18 08/19/18 08/19/18 18:59 06:59 18:59 Intake Total 890 2220 360 Output Total 200 Balance 690 2220 360 Intake: Intake, IV Titration 660 Amount Sodium Chloride 0.9% 1, 660 000 ml @ 65 mls/hr IV . [id number] [facility] Rx#:[id number] Oral 890 1560 360 Output: Urine 200 Other: Voiding Method Toilet # Voids 1 2 # Bowel Movements 0 # Emeses 0 - Constitutional General appearance: Present: mild distress - EENT Eyes: Present: PERRLA Ears: bilateral: normal - Neck Neck: Present: normal ROM - Respiratory Respiratory: bilateral: CTA - Cardiovascular Rhythm: regular - Gastrointestinal General gastrointestinal: Present: soft - Integumentary Integumentary: Present: normal - Neurologic Neurologic: Present: CNII-XII intact - Musculoskeletal Musculoskeletal: Present: generalized weakness - Psychiatric Psychiatric: Present: A&O x's 3, appropriate affect, intact judgment & insight - Labs CBC & Chem 7: 08/18/18 06:33 08/18/18 06:33 Assessment and Plan Assessment: Assessment Right knee osteoarthritis post total right arthroplasty History of coronary disease with [place] GERD Sodium imbalance Hypothyroidism Hypotensive episode history of pacemaker Plan Cardiology consultation EKG and repeat labs
[2018-08-19] MEDS: CALCIUM CARB-VIT D 500MG-200UN 1 EACH TAB PO SCH (11:18)
--- NOTE | 2018-08-19 11:54 | CDI ---
Last Revision, October 2017 Documentation Clarification Form Date: 08/19/18 From: Aspen David RN, CCDS Admit Date: 08/17/2018 9:12:00 AM Patient Name: Sheron Rodriguez Visit Number: [id number] Discharge Date: ATTENTION: The Clinical Documentation Specialists (CDI) and [facility] Coding Staff appreciate your assistance in clarifying documentation. Please respond to the clarification below the line at the bottom and electronically sign. The CDI & [facility] Coding staff will review the response and follow-up if needed. Please note: Queries are made part of the Legal Health Record. If you have any questions, please contact the author of this message via ITS. Inderjit Sal MD Hypotension is documented in the progress notes on 08/18/18. History/Risk Factors: Heart disease with pacemaker, GERD, [place] date unknown, Former smoker Clinical Indicators: Patient on 08/18/18 noted to have a near-syncope episode. Noted to be hypotensive. Patients B/P: 10: 13:18 68/48, 13:20 88/56, 13:23 91/57 Labs: WBC 11.1, HGB 10.1, HCT 34.3 Treatment: Monitor vital signs IV Fluids bolus In your professional opinion, can you please further specify the etiology of the hypotension and clinical significance if known? Orthostatic Hypotension Postural Hypotension Drug Induced Hypotension Other Condition, please specify Unable to determine Please continue to document in your progress notes in order to capture severity of illness and risk of mortality. Include clinical findings that support your diagnosis. MTDD
[2018-08-19 12:33] LABS: Basophils % (A) 0 %; Eosinophils # (A) 0.2 k/uL (0-0.7); Eosinophils % (A) 3 %; HCT 31.8 % (34.0-46.0); HGB 10.3 gm/dL (11.4-16.0); Lymphocytes # (A) 1.5 k/uL (1.0-4.8); Lymphocytes % (A) 24 %; MCH 29.9 pg (25.0-35.0); MCHC 32.3 g/dL (31.0-37.0); MCV 92.7 fL (80.0-100.0); Mean Platelet Volume 7.6; Monocytes # (A) 0.4 k/uL (0-1.0); Monocytes % (A) 7 %; Neutrophils # (A) 3.9 k/uL (1.3-7.7); Neutrophils % (A) 63 %; Platelet Count 193 k/uL (150-450); RBC 3.43 m/uL (3.80-5.40); RDW 13.5 % (11.5-15.5); WBC 6.2 k/uL (3.8-10.6)
[2018-08-19 12:56] LABS: ALT 25 U/L (9-52); AST 29 U/L (14-36); Albumin 2.9 g/dL (3.5-5.0); Alkaline Phosphatase 87 U/L (38-126); Anion Gap 6 mmol/L; Blood Urea Nitrogen 10 mg/dL (7-17); Calcium 8.3 mg/dL (8.4-10.2); Carbon Dioxide 24 mmol/L (22-30); Chloride 110 mmol/L (98-107); Glucose 91 mg/dL (74-99); Potassium 3.8 mmol/L (3.5-5.1); Sodium 140 mmol/L (137-145); Total Bilirubin 0.6 mg/dL (0.2-1.3); Total Protein 5.3 g/dL (6.3-8.2)
[2018-08-19 14:48] VITALS: BP 138/74; PULSE 69; TEMP 98
--- NOTE | 2018-08-19 15:22 | P.CRDCN ---
History of Present Illness History of present illness: Mrs. 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 She denies history of coronary artery disease. She follows with Dr. Diallo in the office. We have been asked to see her in consultation for near syncope and hypotension. She states yesterday she walked to the restroom and urinated. Upon standing she started feeling very dizzy and light headed. She was able to walk back to her chair and quickly sat down just before she felt as if she was going to pass out. There was no LOC. Blood pressure obtained at that time was 68/48, 88/56 and 91/57. Heart rate 58. Blood pressures consistently started coming up from there. This morning BP 112/64 heart rate 63. She denies chest pain, shortness of breath, palpitations, nausea , vomiting or diaphoresis. She underwent elective right knee arthroplasty 08/[address] North. After the initial episode occurred she has had no further symptoms. She currently takes florinef 0.1 mg daily and nadolol 120 mg daily. She states she has not had much of an appetite since surgery. Review of Systems At the time of my exam: CONSTITUTIONAL: Denies fever. Denies chills. EYES: Denies blurred vision. Denies vision changes. Denies eye pain. EARS, NOSE, MOUTH & THROAT: Denies headache. Denies sore throat. Denies ear pain. CARDIOVASCULAR: Denies chest pain. Denies shortness of breath. Denies orthopnea. Denies PND. Denies palpitations. RESPIRATORY: Denies cough. GASTROINTESTINAL: Denies abdominal pain. Denies diarrhea. Denies constipation. Denies nausea. Denies vomiting. MUSCULOSKELETAL: Denies myalgias. INTEGUMENTARY: Denies pruitis. Denies rash. NEUROLOGIC: Denies numbness. Denies tingling. Denies weakness. PSYCHIATRIC: Denies anxiety. Denies depression. ENDOCRINE: Denies fatigue. Denies weight change. Denies polydipsia. Denies polyurina. GENITOURINARY: Denies burning, hematuria or urgency with micturation. HEMATOLOGIC: Denies history of anemia. Denies bleeding. Past Medical History Past Medical History: Eye Disorder, GERD/Reflux, Myocardial Infarction (MS), Osteoarthritis (OA), Thyroid Disorder Additional Past Medical History / Comment(s): hiatal hernia, sodium imbalance, dry eyes, pacemaker Last Myocardial Infarction Date:: unknown History of Any Multi-Drug Resistant Organisms: None Reported Past Surgical History: Joint Replacement, Orthopedic Surgery, Pacemaker Additional Past Surgical History / Comment(s): alice hip replacements, rt hip revision, alice foot surgeries, cataract surg., skin lesions removed from nose and back Past Anesthesia/Blood Transfusion Reactions: Motion Sickness Type of Cardiac Device: Permanent Pacemaker Device Placement Date:: 12/27/11 Past Psychological History: No Psychological Hx Reported Smoking Status: Former smoker Past Alcohol Use History: Occasional Additional Past Alcohol Use History / Comment(s): quit smoking in 1961 Past Drug Use History: None Reported - Past Family History Mother Family Medical History: No Reported History Medications and Allergies Home Medications Medication Instructions Recorded Confirmed Type Calcium Carbonate/Vitamin D3 1 tab PO DAILY 11/20/14 08/17/18 History [Calcium 600-Vit D3 400 Tablet] Cholecalciferol [Vitamin D3] 1,000 unit PO DAILY 11/20/14 08/17/18 History Fludrocortisone [Florinef] 0.1 mg PO DAILY 11/20/14 08/17/18 History Nadolol [Corgard] 20 mg PO DAILY 06/25/15 08/17/18 History Acetaminophen [Tylenol] 1,000 mg PO DAILY 03/24/16 08/17/18 History Aspirin 81 mg PO DAILY 06/26/16 08/17/18 History Glucosamine/Chondr Means A Sod [Osteo 1 tab PO BID 08/09/18 08/17/18 History Bi-Flex Caplet] Pantoprazole [Protonix] 40 mg PO DAILY 08/09/18 08/17/18 History Propylene Glycol/Peg 400/Pf 1 dropper BOTH EYES DAILY 08/09/18 08/17/18 History [Systane 0.3-0.4% Eye Drops] Aspirin 325 mg PO BID #60 tab 08/18/18 Rx HYDROcodone/APAP 5-325MG [[place] 1 - 2 tab PO Q4-6H PRN #84 tab 08/18/18 Rx 5-325] Magnesium Hydroxide [Milk of 2,400 mg PO DAILY PRN ml 08/18/18 Rx Magnesia Concentrate] Sennosides [Senokot] 1 tab PO BID #60 tablet 08/18/18 Rx Allergies Allergy/AdvReac Type Severity Reaction Status Date / Time cephalexin Allergy SOB Verified 08/17/18 15:20 Physical Exam Vitals: Vital Signs Temp Pulse Resp BP Pulse Ox 08/19/18 14:45 98 F 69 16 138/74 96 08/19/18 07:00 97.9 F 63 16 112/64 94 L 08/19/18 00:04 97.9 F 63 17 109/68 95 08/18/18 19:11 98.3 F 64 17 149/70 96 08/18/18 16:11 131/71 08/18/18 15:15 113/71 Intake and Output 08/18/18 08/19/18 08/19/18 22:59 06:59 14:59 Intake Total 1145 1075 582 Balance 1145 1075 582 Intake: Intake, IV Titration 65 595 Amount Sodium Chloride 0.9% 1, 65 595 000 ml @ 65 mls/hr IV . [id number] [facility] Rx#:[id number] Oral 1080 480 582 Other: Voiding Method Toilet # Voids 2 2 1 # Bowel Movements 0 1 # Emeses 0 Blood pressure 138/74 heart rate 69 afebrile maintaining oxygen saturation on room air GENERAL: This is a 78-year-old female in no apparent distress at the time of my examination. HEENT: Head is atraumatic, normocephalic. Pupils are equal, round. Sclerae anicteric. Conjunctivae are clear. Mucous membranes of the mouth are moist. Neck is supple. There is no jugular venous distention. No carotid bruit is heard. LUNGS: Clear to auscultation no wheezes, rales or rhonchi. No chest wall tenderness is noted on palpation or with deep breathing. HEART: Regular rate and rhythm with systolic ejection murmur at the base. No rubs or gallops. S1 and S2 heard. ABDOMEN: Soft, nontender. Bowel sounds are heard. No organomegaly noted. EXTREMITIES: No evidence of peripheral edema and no calf tenderness noted. VASCULAR: Radial and dorsalis pedis pulses palpated, no evidence of clubbing. NEUROLOGIC: Patient is awake, alert and oriented x3. Results 08/19/18 12:01 08/19/18 12:01 Cardiac Enzymes 08/19/18 08/19/18 Range/Units 12:01 12:01 AST 29 (14-36) U/L Troponin I <0.012 (0.000-0.034) ng/mL CBC 08/19/18 Range/Units 12:01 WBC 6.2 (3.8-10.6) k/uL RBC 3.43 L (3.80-5.40) m/uL Hgb 10.3 L (11.4-16.0) gm/dL Hct 31.8 L (34.0-46.0) % Plt Count 193 (150-450) k/uL Comprehensive Metabolic Panel 08/19/18 Range/Units 12:01 Sodium 140 (137-145) mmol/L Potassium 3.8 (3.5-5.1) mmol/L Chloride 110 H (98-107) mmol/L Carbon Dioxide 24 (22-30) mmol/L BUN 10 (7-17) mg/dL Creatinine 0.56 (0.52-1.04) mg/dL Glucose 91 (74-99) mg/dL Calcium 8.3 L (8.4-10.2) mg/dL AST 29 (14-36) U/L ALT 25 (9-52) U/L Alkaline Phosphatase 87 (38-126) U/L Total Protein 5.3 L (6.3-8.2) g/dL Albumin 2.9 L (3.5-5.0) g/dL Current Medications Generic Name Dose Route Start Last Admin Trade Name Freq PRN Reason Stop Dose Admin Hydrocodone Bitart/Acetaminophen 1 each 08/17/18 11:30 08/18/18 11:46 [place] 5-325 PO 1 each Q6HR PRN Administration Pain Scale 1 to 5 Hydrocodone Bitart/Acetaminophen 2 each 08/17/18 11:30 08/19/18 11:18 [place] 5-325 PO 2 each Q6HR PRN Administration Pain Scale 6 to 10 Artificial Tears 1 drops 08/18/18 09:00 08/19/18 08:58 Artificial Tear Drops BOTH EYES Not Given DAILY YE[facility]Y Aspirin 325 mg 08/17/18 21:00 08/19/18 08:57 Aspirin PO 325 mg BID YEIMY Administration Bisacodyl 10 mg 08/17/18 11:30 Dulcolax RECTAL DAILY PRN Constipation Calcium Carbonate 1 each 08/18/18 12:00 08/19/18 11:18 Oscal 500+D PO 1 each DAILY@1200 YEIMY Administration Ropivacaine 1,100 mg/ Sodium 0 mg 08/17/18 10:22 08/17/18 13:45 Chloride 330 ml MISCELLANE 1,100 mg Q2H PRN Administration Breakthrough Pain Diazepam 2.5 mg 08/17/18 11:30 Valium PO Q8HR PRN Mild Spasms Diazepam 5 mg 08/17/18 11:30 Valium PO Q8HR PRN Moderate to Severe Spasms Fludrocortisone Acetate 0.1 mg 08/18/18 09:00 08/19/18 08:56 Florinef PO 0.1 mg DAILY YE[facility]Y Administration Hydromorphone HCl 0.125 mg 08/17/18 11:30 Dilaudid IVP Q3HR PRN Pain Scale 1 to 3 Hydromorphone HCl 0.25 mg 08/17/18 11:30 Dilaudid IVP Q3HR PRN Pain Scale 4 to 6 Hydromorphone HCl 0.5 mg 08/17/18 11:30 Dilaudid IVP Q3HR PRN Pain Scale 7 to 10 Hydroxyzine Pamoate 25 mg 08/17/18 11:30 Vistaril PO Q4HR PRN Nausea, Anxiety, Pain Control Lactated Ringer's 1,000 mls @ 20 mls/hr 08/17/18 05:15 08/19/18 04:50 Lactated Ringers IV Not Given .Q24H YE[facility] Sodium Chloride 1,000 mls @ 65 mls/hr 08/17/18 11:30 08/18/18 20:07 Saline 0.9% IV 65 mls/hr .[id number] [facility] Administration Lidocaine HCl 0.1 ml 08/17/18 05:15 08/17/18 09:41 .Xylocaine 1% Inj (10mg/Ml) For Iv Start INTRADERMA 0.1 ml PER PROTOCOL PRN Administration IV Start Magnesium Hydroxide 2,400 mg 08/17/18 11:30 Milk Of Magnesia PO DAILY PRN Constipation Meloxicam 7.5 mg 08/18/18 09:00 08/19/18 08:56 Mobic PO 7.5 mg DAILY [facility] Administration Nadolol 20 mg 08/18/18 09:00 08/19/18 08:58 Corgard PO Not Given DAILY [facility] Naloxone HCl 0.2 mg 08/17/18 11:30 Narcan IV Q2M PRN Opioid Reversal Ondansetron HCl 4 mg 08/17/18 11:30 Zofran IVP Q8HR PRN Nausea And Vomiting Pantoprazole Sodium 40 mg 08/18/18 09:00 08/19/18 08:56 Protonix PO 40 mg DAILY [facility] Administration Senna/Docusate Sodium 2 each 08/17/18 21:00 08/18/18 20:07 Senokot-S PO 2 each HS [facility] Administration Sodium Biphosphate/Sodium Phosphate 133 ml 08/17/18 11:30 Fleet Adult RECTAL DAILY PRN Constipation Intake and Output 08/18/18 08/19/18 08/19/18 22:59 06:59 14:59 Intake Total 1145 1075 582 Balance 1145 1075 582 Intake: Intake, IV Titration 65 595 Amount Sodium Chloride 0.9% 1, 65 595 000 ml @ 65 mls/hr IV . [id number] [facility] Rx#:[id number] Oral 1080 480 582 Other: Voiding Method Toilet # Voids 2 2 1 # Bowel Movements 0 1 # Emeses 0 08/19/18 12:01 08/19/18 12:01 Assessment and Plan Assessment: ASSESSMENT Pre-syncope related to orthostatic hypotension secondary to poor PO intake, pain medication and vasovagal reaction History of neurocardiogenic syncope with profound bradycardia and long pauses followed by loss of consciousness Permanent pacemaker implantation 2011 secondary to above PLAN Stable from a cardiac perspective. Advised patient to increase oral intake, change positions slowly and if she feels dizzy to lower herself slowly to the floor to avoid falling. Ongoing medical management of post-operative care. Follow up with Dr. Diallo in 2-3 weeks. Nurse Practitioner note has been reviewed, I agree with a documented findings and plan of care. Patient was seen and examined.
== END 2018-08-19 15:30 | disposition home health service (06) | DRG 470 ==
LOC: 2ORMAIN 09:12 → 3SUR 14:31
PROVIDERS: ADMIT Orthopaedic Surgery; ATTEND Orthopaedic Surgery
PROC: 0SRC069 Replacement of Right Knee Joint with Oxidized Zirconium on Polyethylene Synthetic Substitute, Cemented, Open Approach (ICD-10-PCS; principal; 2018-08-17 11:00)
DX: M17.11 Unilateral primary osteoarthritis, right knee (principal); E03.9 Hypothyroidism, unspecified; I25.2 Old myocardial infarction; I95.1 Orthostatic hypotension; K21.9 Gastro-esophageal reflux disease without esophagitis; Z79.82 Long term (current) use of aspirin; Z87.891 Personal history of nicotine dependence; Z95.0 Presence of cardiac pacemaker; Z79.899 Other long term (current) drug therapy; Z88.8 Allergy status to other drugs, medicaments and biological substances; Z96.643 Presence of artificial hip joint, bilateral; Z98.49 Cataract extraction status, unspecified eye; Z88.1 Allergy status to other antibiotic agents
CPT/HCPCS: 80053; 84484; 85025; 88300; 93005

== ENCOUNTER → 2018-11-11 | Outpatient (CLI) | payer MEDICARE ==
[2018-11-11 07:38] LABS: HCT 39.3 % (34.0-46.0); HGB 12.4 gm/dL (11.4-16.0); INR 0.9 (<1.2); MCH 29.6 pg (25.0-35.0); MCHC 31.6 g/dL (31.0-37.0); MCV 93.5 fL (80.0-100.0); Mean Platelet Volume 7.4; Partial Thromboplastin Time 22.4 sec (22.0-30.0); Platelet Count 226 k/uL (150-450); Prothrombin Time 9.8 sec (9.0-12.0); RBC 4.21 m/uL (3.80-5.40); WBC 5.9 k/uL (3.8-10.6)
[2018-11-11 07:59] LABS: Appearance,Urine Cloudy (Clear); Bacteria,Urine Occasional /hpf; Bilirubin,Urine Negative (Negative); Blood,Urine Small (Negative); Color,Urine Yellow; Glucose,Urine (UA) Negative (Negative); Ketones,Urine Negative (Negative); Leukocyte Esterase,Urine Large (Negative); Mucus,Urine Few /hpf; Nitrite,Urine Negative (Negative); PH, Urine 6.5 (5.0-8.0); Protein,Urine Trace (Negative); RBC,Urine 16 /hpf (0-5); Specific Gravity,Urine 1.017 (1.001-1.035); Squamous Epithelial Cell,Urine 6 /hpf (0-4); Urobilinogen,Urine <2.0 mg/dL (<2.0); WBC,Urine 131 /hpf (0-5)
[2018-11-11 12:38] LABS: Albumin 4.2 g/dL (3.80-4.90); Albumin/Globulin Ratio 2.33 (1.20-2.10); Anion Gap 7.4 mmol/L (4.00-12.00); Calcium 8.7 mg/dL (8.7-10.3); Carbon Dioxide 27.6 mmol/L (21.6-31.8); Globulin 1.8 g/dL (1.6-3.3); Potassium 4.1 mmol/L (3.5-5.5); Total Bilirubin 0.4 mg/dL (0.3-1.2)
== END | disposition home or self-care (01) ==
LOC: LABWHC1 06:40
PROVIDERS: ATTEND Orthopaedic Surgery
DX: Z01.812 Encounter for preprocedural laboratory examination (principal); Z51.81 Encounter for therapeutic drug level monitoring; Z79.01 Long term (current) use of anticoagulants
CPT/HCPCS: 36415; 80053; 81001; 85027; 85610; 85730; 87070

== ENCOUNTER 2018-11-23 09:15 | Inpatient (IN) | payer MEDICARE ==
[2018-11-17 16:26] VITALS: BMI 28.8
[~2018-11-23 09:15] MED LIST changes: -LIDOCAINE 1% 20 ML VIAL (10MG/ML) FOR IV START INTRADERMA PRN; -MIDAZOLAM 2 MG/2 ML VIAL IV PRN; +MORPHINE SULFATE 2 MG/ML SYRINGE IV PRN; +ONDANSETRON 4 MG/2 ML VIAL IVP PRN; +ROPIVACAINE 246.25 MG, EPINEPHrine 0.5 MG, KETOROLAC 30 MG, cloNIDine HCL/PF 80 MCG, WA... MISCELLANE ONE; -SCOPOLAMINE 1.5MG/72HR PATCH TRANSDERM ONE
[2018-11-23] MEDS: LACTATED RINGERS 1,000 ML IV SCH (10:38)
[2018-11-23 10:40] LABS: Glucose,Whole Blood 104 mg/dL (75-99)
[2018-11-23] MEDS ORDERED: DEXAMETHASONE SOD PHOSPHATE 10 MG/ML 1 ML VIAL IV ONE (10:43)
[2018-11-23] MEDS ORDERED: MIDAZOLAM 2 MG/2 ML VIAL IV ONE (11:04)
[2018-11-23] MEDS ORDERED: fentaNYL (PF) 50 MCG/ML 2 ML AMP IV ONE (11:05)
[2018-11-23] MEDS ORDERED: HYDROcodone/APAP 5-325MG 1 EACH TAB PO PRN (11:25)
[2018-11-23] MEDS ORDERED: DIAZEPAM 5 MG TAB PO PRN (11:25)
[2018-11-23] MEDS ORDERED: NA PHOS,M-B/NA PHOS,DI-BA 133 ML ENEMA RECTAL PRN (11:25)
[2018-11-23] MEDS ORDERED: HYDROmorphone 0.5 MG/0.5 ML SYRINGE IVP PRN ×3 (11:25)
[2018-11-23] MEDS ORDERED: ONDANSETRON 4 MG/2 ML VIAL IVP PRN (11:25)
[2018-11-23] MEDS ORDERED: hydrOXYzine PAMOATE 25 MG CAP PO PRN (11:25)
[2018-11-23] MEDS ORDERED: MAGNESIUM HYDROXIDE 2,400 MG/10 ML CUP PO PRN (11:25)
[2018-11-23] MEDS ORDERED: BISACODYL 10 MG SUPP RECTAL PRN (11:25)
[2018-11-23] MEDS ORDERED: NALOXONE 0.4 MG/ML 1 ML VIAL IV PRN (11:25)
[2018-11-23] MEDS ORDERED: ROPIVACAINE 1,100 MG, SODIUM CHLORIDE 0.9% 500 ML 330 ML MISCELLANE PRN ×2 (11:33)
--- NOTE | 2018-11-23 11:35 | P.ONQ ---
Anesthesiology Proc Note - PNB - Peripheral Nerve Block Performed Left Adductor Canal Infusion Time Out Performed: Yes Procedure Start Time: 11:03 Indication: Acute Post-Operative Pain Specifically requested for management of pain by DrZulma: Tom North Sedation Type: Sedate with meaningful contact maintained Preparation: Sterile Prep Position: Supine Catheter Depth at Skin (cm): 7 Catheter: Indwelling Needle Types: Other (see comment) (Pajunk) Needle Size: 100mm (4") Needle Gauge: 18 Technique: Ultrasound Injectate: 0.5% Ropivacaine (see comment for volume) (20cc) Blood Aspirated: No Pain Paresthesia on Injection Noted: No Resistance on Injection: Normal Events: Uneventful and Well Tolerated
[2018-11-23] MEDS ORDERED: fentaNYL (PF) 50 MCG/ML 2 ML AMP ONE (11:45)
[2018-11-23] MEDS ORDERED: SODIUM CHLORIDE 0.9% 100 ML BAG ONE (11:45)
[2018-11-23] MEDS ORDERED: PROPOFOL 10 MG/ML 20 ML VIAL IV ONE (11:45)
[2018-11-23] MEDS ORDERED: TRANEXAMIC ACID 1,000 MG/10 ML VIAL ONE (11:45)
[2018-11-23] MEDS ORDERED: MIDAZOLAM 2 MG/2 ML VIAL ONE (11:45)
[2018-11-23] MEDS ORDERED: ceFAZolin 3,000 MG in SODIUM CHLORIDE 0.9% IRRIGATIO 3,000 ML IRRIGATION ONE (12:23)
[2018-11-23] MEDS ORDERED: LACTATED RINGERS 1,000 ML IV ONE ×2 (12:23→15:20)
--- NOTE | 2018-11-23 13:01 | P.OP ---
Date of Procedure: 11/23/18 Preoperative Diagnosis: Severe osteoarthritis left knee Postoperative Diagnosis: Severe osteoarthritis left knee Procedure(s) Performed: Left total knee arthroplasty Implants: [employer] Journey II CR Oxinium cruciate retaining femoral component size 6, left [employer] Journey left nonporous tibial baseplate size 5 [employer] Journey II, XLPE Deep Dished articular insert, size 9 mm, Size 5- 6 left [employer] Journey BCS resurfacing oval patellar component, 32 mm All components were cemented using Palacos R bone cement.. The articulation is Oxinium on polyethylene. Anesthesia: spinal Surgeon: Tom North Engraver Picture #1: Violeta Torres Estimated Blood Loss (ml): 25 Pathology: other (Bone and cartilage) Condition: stable Disposition: PACU Indications for Procedure: After failure of conservative treatment we discussed the surgical and nonsurgical treatment options at length. Patient wishes to proceed with a total knee arthroplasty. Complications specific to this procedure were discussed at length, including but not limited to infection, bleeding, stiffness , and nerve injury. Patient is aware of all these complications and informed consent was obtained Operative Findings: The operative findings are consistent with severe osteoarthritis of the left knee Description of Procedure: Patient was seen in the preoperative area consent was reviewed and operative site was marked with a skin marker. An adductor canal pain catheter was placed by anesthesia in the preoperative area. Patient was then brought to the operating room and given preoperative antibiotics intravenously. A spinal anesthetic was administered by the anesthesia department. A tourniquet was placed on the upper thigh and the lower extremity was prepped and draped in usual sterile fashion. A gram of transexamic acid was given. A universal timeout was then performed which confirmed the patient's name, surgical site, ALLERGIES, and consent. The lower extremity was then exsanguinated and tourniquet was inflated to 250 mmHg. A standard and anterior midline approach to the knee was performed. The skin and subcutaneous tissue was dissected down to the patellar tendon. A medial parapatellar arthrotomy was then performed. The knee was then extended, the patellar was everted, and the knee was again flexed. Anterior horns of both menisci were excised, and a release was performed to the posterior medial aspect of the knee. On gross visual inspection, there was complete loss of articular cartilage in the medial and patellofemoral joint spaces. There was also significant cartilage damage in the lateral compartment. There were multiple periarticular osteophytes which were then removed with a Ronguer. The femoral canal was then opened with the appropriate drill, and the intramedullary femoral cutting guide was then placed and set for 5 of valgus. The distal femoral cutting block was then pinned in place, and the distal femur was then cut. The cutting block was then removed and the cut was checked for flatness. Next, the sizing guide was then placed and set for 3 external rotation based off of the epicondylar axis and Whitesides line. After the femur was sized, the appropriate 4-in-1 cutting block was then pinned in place. The anterior condyles were cut without notching. The posterior and chamfer cuts were performed while protecting the collateral ligaments. The cutting block was then removed, and the femoral canal was plugged with autologous bone. Attention was then directed to the tibia. The remaining ACL was removed with a Ronguer, and the tibia was then gently subluxed forward with a large bent knee retractor. Any remaining menisci was excised. The posterior lateral corner was cauterized in order to cauterize the lateral geniculate artery. The extra medullary tibial cutting guide was then placed, set for the appropriate rotation , slope, and depth of resection. The proximal tibia cutting guide was then pinned in place. Proximal tibia was then cut and sized. Next trials were then placed with the appropriate-sized insert. The knee was able to fully extend and flex to 130 and was stable throughout all range of motion. The knee was then extended, patella everted. Patella was then measured, and then using an osteotomy guide, the patella was cut at the appropriate level. The patella was then measured and drilled and the patella trial was then placed. The knee was then taken through range of motion with the patella trial and the patella tracked normally. The knee was then extended patella trial was then removed and the patella was everted. Knee was then flexed and lug holes were drilled through the femoral trial and the femoral trial was then removed. The tibial was then exposed, and the tibial broach guide was then pinned in place after it was set for the appropriate rotation to allow for the most coverage without overhang. The tibia was then reamed and broached. The cut surfaces of bone were then irrigated with pulsatile lavage. The posterior structures were injected with the ropivacaine solution. The knee was also irrigated with Irrisept solution. The components were then opened, the cement was mixed, and the components were then cemented in place. The cement was allowed to harden with the knee in full extension. While the cement was hardening, the remaining soft tissues were then injected with a ropivacaine solution, which consisted of 246.25 mg of ropivacaine, 0.5 mg of epinephrine, 30 mg of Toradol, 80 g of clonidine, and 48.45 mL of sterile water, for a total of 100 mL of fluid injected. After the cemented hardened. The tourniquet was released, and hemostasis was obtained. A second gram of transexamic acid was given. The knee was again irrigated. The knee was again taken through range of motion and found to be stable throughout all range of motion of 0-130 , and the patella tracked normally. The fascia was then closed with #2 strata fix suture. The subcutaneous tissue was closed with 3-0 Vicryl and 3-0 strata fix. Dermabond glue was used for the skin and placed with the knee in flexion. The patient was placed in a sterile silver dressing. Patient was then transferred to recovery room in stable condition. The assistant women's soccer coach HERNAN Hoyos was required due the complexity surgery and the need for a skilled administrative assistant office manager. She assisted in positioning, draping, retraction, and closure of the wound.
--- NOTE | 2018-11-23 14:03 | XR ---
EXAMINATION TYPE: XR knee limited LT DATE OF EXAM: 11/23/2018 COMPARISON: None HISTORY: Post knee replacement TECHNIQUE: 2 view left knee FINDINGS: Tibial and femoral components in place. Soft tissue postsurgical changes are evident. No acute fractures are evident. IMPRESSION: 1. No acute fractures post left knee replacement.
[2018-11-23] MEDS: SODIUM CHLORIDE 0.9% 1,000 ML IV SCH (16:32)
[2018-11-23] MEDS: CLINDAMYCIN 900 MG in DEXTROSE 5% IN WATER 50 ML IVPB SCH ×4 (18:12→22:54)
[2018-11-23] MEDS: SENNOSIDES-DOCUSATE SODIUM 1 EACH TAB PO SCH (20:48)
[2018-11-23] MEDS: ASPIRIN 325 MG TAB PO SCH (20:48)
[2018-11-23] MEDS: HYDROcodone/APAP 5-325MG 1 EACH TAB PO PRN (22:56)
[2018-11-24] MEDS: SODIUM CHLORIDE 0.9% 1,000 ML IV SCH ×2 (04:36→20:49)
[2018-11-24] MEDS: LACTATED RINGERS 1,000 ML IV SCH (05:08)
--- NOTE | 2018-11-24 07:38 | P.CONS ---
History of Present Illness - Reason for Consult Consult date: 11/23/18 Medical management - Chief Complaint Elective admission for left total knee arthroplasty - History of Present Illness Patient is a 78-year-old female with a known history of osteoarthritis, GERD, hypothyroidism was admitted to the hospital for left total knee arthroplasty due to severe osteoarthritis. Patient tolerated the procedure very well. Patient has a history of orthostatic hypotension and is on Florinef at home. Currently blood pressure is stable. Patient also has history of sick sinus syndrome and permanent pacemaker placed on 12/27/2011 Patient does have previous history of smoking. Currently denied any complaints of chest pain. No headache or dizziness or lightheadedness. No nausea vomiting or abdominal pain. Pain is controlled. No cough or sputum production. Review of Systems Constitutional: Patient denies any fever or chills . No generalized weakness or weight loss. Abdomen: Patient denied nausea vomiting and diarrhea and abdominal pain. Cardiovascular: Patient denies any chest pain or short of breath no palpitations. Respiratory: patient denied any cough is from production. No shortness of breath Neurologic: Patient denied any numbness or tingling headache. Musculoskeletal: Patient denies any complaints of joint swelling or deformity. Skin: Negative Psychiatric: Negative Endocrine: No heat or cold intolerance. No recent weight gain. Genitourinary: No dysuria or hematuria. All other 14 point ROS negative except the above Past Medical History Past Medical History: Eye Disorder, GERD/Reflux, Osteoarthritis (OA), Thyroid Disorder Additional Past Medical History / Comment(s): hiatal hernia, past hx. sodium imbalance, just finishing antibiotics for UTI Last Myocardial Infarction Date:: unknown History of Any Multi-Drug Resistant Organisms: None Reported Past Surgical History: Joint Replacement, Orthopedic Surgery, Pacemaker Additional Past Surgical History / Comment(s): alice hip replacements, rt hip revision, alice foot surgeries, cataract surg., right knee replaced August 2018 Past Anesthesia/Blood Transfusion Reactions: Motion Sickness Type of Cardiac Device: Permanent Pacemaker Device Placement Date:: 12/27/11 Past Psychological History: No Psychological Hx Reported Smoking Status: Former smoker Past Alcohol Use History: Occasional Additional Past Alcohol Use History / Comment(s): quit smoking in 1961 Past Drug Use History: None Reported - Past Family History Father Family Medical History: Myocardial Infarction ([place]) Mother Family Medical History: No Reported History Medications and Allergies Home Medications Medication Instructions Recorded Confirmed Type Calcium Carbonate/Vitamin D3 1 tab PO DAILY 11/20/14 11/23/18 History [Calcium 600-Vit D3 400 Tablet] Cholecalciferol [Vitamin D3] 1,000 unit PO DAILY 11/20/14 11/23/18 History Fludrocortisone [Florinef] 0.1 mg PO DAILY 11/20/14 11/23/18 History Nadolol [Corgard] 20 mg PO DAILY 06/25/15 11/23/18 History Acetaminophen [Tylenol] 1,000 mg PO DAILY 03/24/16 11/23/18 History Aspirin 81 mg PO DAILY 06/26/16 11/23/18 History Glucosamine/Chondr Means A Sod [Osteo 1 tab PO BID 08/09/18 11/23/18 History Bi-Flex Caplet] Pantoprazole [Protonix] 40 mg PO DAILY 08/09/18 11/23/18 History Magnesium 250 mg PO Q48H 11/17/18 11/23/18 History Naproxen Sodium [Aleve] 220 mg PO BID PRN 11/17/18 11/23/18 History Allergies Allergy/AdvReac Type Severity Reaction Status Date / Time cephalexin Allergy SOB Verified 11/23/18 15:09 Physical Exam Vitals: Vital Signs Temp Pulse Pulse Resp BP Pulse Ox 11/23/18 15:46 97.6 F 68 18 131/65 96 11/23/18 15:15 71 16 146/76 97 11/23/18 15:00 67 16 127/65 98 11/23/18 14:47 64 16 136/71 97 11/23/18 14:30 68 16 122/64 97 11/23/18 14:15 60 16 127/64 97 11/23/18 14:03 73 16 117/70 97 11/23/18 13:45 64 16 121/70 95 11/23/18 13:29 97 F L 60 10 L 116/65 95 11/23/18 10:20 97.6 F 60 16 160/71 97 Intake and Output 11/23/18 11/23/18 11/23/18 06:59 14:59 22:59 Intake Total 1956 0 Output Total 25 Balance 1931 0 Intake: IV 1956 0 Output: Estimated Blood Loss 25 Other: Weight 84.822 kg PHYSICAL EXAMINATION: Patient is lying in the bed comfortably, no acute distress, awake alert and oriented.. HEENT: Normocephalic. Neck is supple. Pupils reactive. Nostrils clear. Oral cavity is moist. Ears reveal no drainage. Neck reveals no JVD, carotid bruits, or thyromegaly. CHEST EXAMINATION: Trachea is central. Symmetrical expansion. Lung ornelas clear to auscultation and percussion. CARDIAC: Normal S1, S2 with no gallops. No murmurs ABDOMEN: Soft. Bowel sounds normal. No organomegaly. No abdominal bruits. Extremities: reveal no edema. No clubbing or cyanosis Neurologically awake, alert, oriented x3 with well-coordinated movements. No focal deficits noted Skin: No rash or skin lesions. Psychiatric: Coperative. Nonsuicidal Musculoskeletal: No joint swelling or deformity. Left knee is surgically bandaged.. Results Labs: Abnormal Lab Results - Last 24 Hours (Table) 11/23/18 Range/Units 10:39 POC Glucose (mg/dL) 104 H (75-99) mg/dL Assessment and Plan Assessment: Status post left total knee arthroplasty postoperative day 0 history of right total arthroplasty Orthostatic hypotension. On Florinef at home. Sick sinus syndrome status post permanent pacemaker placement Osteoarthritis of multiple joints GERD Hypothyroidism Previous history of smoking quit in 1961 DVT prophylaxis. Plan: Patient will be continued on pain management and bowel regimen. Currently on aspirin twice a day for DVT prophylaxis. Continue the home medications and follow blood pressures closely. Encourage incentive spirometry. Monitor H&H. Will continue to follow with you. Further recommendations based on the clinical course. Thank you for your consult. Time with Patient: Greater than 30
[2018-11-24] MEDS: MELOXICAM 7.5 MG TAB PO SCH (08:11)
[2018-11-24] MEDS: ASPIRIN 325 MG TAB PO SCH ×2 (08:13→20:50)
--- NOTE | 2018-11-24 08:24 | P.DS ---
Providers Date of admission: 11/23/18 10:00 Expected date of discharge: 11/24/18 Attending physician: Tom North Consults: 11/23/18 11:25 Consult Physician Routine Consulting Provider: Inderjit Santos Consult Reason/Comments: medical management Do you want consulting provider notified?: Yes Primary care physician: Inderjit Santos - Discharge Diagnosis(es) (1) Primary osteoarthritis of left knee Current Visit: Yes Status: Acute (2) S/P total knee arthroplasty Current Visit: No Status: Acute Hospital Course: This is a 78-year-old female with known history of degenerative arthritis of the left knee. The patient presents for evaluation. After discussion and consideration patient elects to proceed with total knee arthroplasty. The patient is seen preoperatively by Dr. North and medically cleared for surgery by their primary care physician. Patient is admitted to [facility] on 11/23/2018 for total knee arthroplasty. The procedures performed without complication or sequelae. The patient is doing well postoperatively. Labs and vital signs are stable on day of discharge. On day of discharge patient's knee incision is healing well. There is minimal erythema. There is no drainage noted at this time. There is minimal soft tissue swelling to the knee. Patient has full foot and ankle motion without difficulty or pain. Neurovascular status to the left lower extremity is intact. Patient is discharged home in good condition. Please see med rec for accurate list of home medications. Plan - Discharge Summary Discharge Rx Participant: Yes New Discharge Prescriptions: New Aspirin 325 mg PO BID #60 tab HYDROcodone/APAP 5-325MG [[place] 5-325] 1 - 2 tab PO Q4-6H PRN #84 tab PRN Reason: Pain Sennosides [Senokot] 1 tab PO BID #60 tablet No Action Fludrocortisone [Florinef] 0.1 mg PO DAILY Calcium Carbonate/Vitamin D3 [Calcium 600-Vit D3 400 Tablet] 1 tab PO DAILY Cholecalciferol [Vitamin D3] 1,000 unit PO DAILY Nadolol [Corgard] 20 mg PO DAILY Acetaminophen [Tylenol] 1,000 mg PO DAILY Aspirin 81 mg PO DAILY Pantoprazole [Protonix] 40 mg PO DAILY Glucosamine/Chondr Means A Sod [Osteo Bi-Flex Caplet] 1 tab PO BID Naproxen Sodium [Aleve] 220 mg PO BID PRN PRN Reason: Pain Magnesium 250 mg PO Q48H Discharge Medication List Calcium Carbonate/Vitamin D3 [Calcium 600-Vit D3 400 Tablet] 1 tab PO DAILY 03/30 [History] Cholecalciferol [Vitamin D3] 1,000 unit PO DAILY 11/20/14 [History] Fludrocortisone [Florinef] 0.1 mg PO DAILY 11/20/14 [History] Nadolol [Corgard] 20 mg PO DAILY 06/25/15 [History] Acetaminophen [Tylenol] 1,000 mg PO DAILY 03/24/16 [History] Aspirin 81 mg PO DAILY 06/26/16 [History] Glucosamine/Chondr Means A Sod [Osteo Bi-Flex Caplet] 1 tab PO BID 08/09/18 [ History] Pantoprazole [Protonix] 40 mg PO DAILY 08/09/18 [History] Magnesium 250 mg PO Q48H 11/17/18 [History] Naproxen Sodium [Aleve] 220 mg PO BID PRN 11/17/18 [History] Aspirin 325 mg PO BID #60 tab 11/24/18 [Rx] HYDROcodone/APAP 5-325MG [[place] 5-325] 1 - 2 tab PO Q4-6H PRN #84 tab 11/24/18 [ Rx] Sennosides [Senokot] 1 tab PO BID #60 tablet 11/24/18 [Rx] Follow up Appointment(s)/Referral(s): Tom North DO [Doctor of Osteopathic Medicine] - 2 Weeks Activity/Diet/Wound Care/Special Instructions: Weightbearing as tolerated with a walker. CPM 5-6h daily. Leave dressing intact. May be removed by home care nurse in 10 days. May shower with dressing on. Please follow up with [facility] and call with any questions or concerns, . Discharge Disposition: HOME WITH HOME HEALTH SERVICES
[2018-11-24 08:34] LABS: Basophils % (A) 0 %; Eosinophils % (A) 0 %; HCT 31.5 % (34.0-46.0); HGB 10.1 gm/dL (11.4-16.0); Lymphocytes # (A) 1.8 k/uL (1.0-4.8); Lymphocytes % (A) 17 %; MCHC 31.9 g/dL (31.0-37.0); Mean Platelet Volume 7.5; Monocytes # (A) 0.4 k/uL (0-1.0); Monocytes % (A) 4 %; Neutrophils # (A) 8.1 k/uL (1.3-7.7); Neutrophils % (A) 77 %; Platelet Count 203 k/uL (150-450); RBC 3.36 m/uL (3.80-5.40); RDW 13.2 % (11.5-15.5); WBC 10.5 k/uL (3.8-10.6)
--- NOTE | 2018-11-24 11:34 | P.PN ---
Progress Note - Text Anesthesia POD 1. Patient is status post left TKR under bilateral anesthesia with a left adductor canal catheter placed for postoperative pain relief. With ropivacaine 0.2% running at 8 cc's per hour, the patient's VAS is (1, 3). Catheter site is clean dry and intact.
[2018-11-24] MEDS: HYDROcodone/APAP 5-325MG 1 EACH TAB PO PRN ×3 (12:06→23:46)
--- NOTE | 2018-11-24 12:38 | P.PN ---
Subjective Patient resting in bed without complaint. Patient has been done discharge per orthopedics. Patient medically stable for discharge Objective - Vital Signs Vital signs: Vital Signs Temp 97.6 F 11/24/18 07:00 Pulse 56 L 11/24/18 07:00 Resp 16 11/23/18 19:51 BP 111/68 11/24/18 07:00 Pulse Ox 96 11/24/18 07:00 Intake & Output 11/23/18 11/24/18 11/24/18 18:59 06:59 18:59 Intake Total 1956 60 Output Total 25 Balance 1931 60 Weight 84.822 kg Intake: IV 1956 Intake, IV Titration 60 Amount Lactated Ringers 1,000 ml 60 @ 20 mls/hr IV .Q24H YEIMY Rx#:[id number] Output: Estimated Blood Loss 25 Other: # Voids 2 - Constitutional General appearance: Present: mild distress - EENT Eyes: Present: PERRLA Ears: right: normal - Neck Neck: Present: normal ROM - Respiratory Respiratory: bilateral: CTA - Cardiovascular Rhythm: regular - Gastrointestinal General gastrointestinal: Present: soft - Integumentary Integumentary: Present: normal - Neurologic Neurologic: Present: CNII-XII intact - Psychiatric Psychiatric: Present: A&O x's 3, appropriate affect, intact judgment & insight - Labs CBC & Chem 7: 11/24/18 07:58 Labs: Abnormal Lab Results - Last 24 Hours (Table) 11/24/18 Range/Units 07:58 RBC 3.36 L (3.80-5.40) m/uL Hgb 10.1 L (11.4-16.0) gm/dL Hct 31.5 L (34.0-46.0) % Neutrophils # 8.1 H (1.3-7.7) k/uL Assessment and Plan Plan: Assessment Osteoarthritis left knee post left knee total arthroplasty History of coronary disease GERD history of right knee arthroplasty Plan Patient medically cleared for discharge
[2018-11-24] MEDS: SENNOSIDES-DOCUSATE SODIUM 1 EACH TAB PO SCH (20:52)
[2018-11-25] MEDS: LACTATED RINGERS 1,000 ML IV SCH (05:12)
[2018-11-25] MEDS: MELOXICAM 7.5 MG TAB PO SCH (07:02)
[2018-11-25] MEDS: HYDROcodone/APAP 5-325MG 1 EACH TAB PO PRN (07:03)
[2018-11-25] MEDS: ASPIRIN 325 MG TAB PO SCH (07:03)
[2018-11-25] MEDS ORDERED: HYDROcodone/APAP 7.5-325MG 1 EACH TAB PO PRN (08:27)
[2018-11-25] MEDS ORDERED: KETOROLAC 30 MG/ML 1 ML VIAL IVP PRN (08:28)
[2018-11-25] MEDS: SODIUM CHLORIDE 0.9% 1,000 ML IV SCH (11:19)
--- NOTE | 2018-11-25 11:42 | P.PN ---
Progress Note - Text Patient resting in chair at bedside. States abdominal discomfort improved was able to have a bowel movement. Blood pressures stable 120/60. Stable for discharge
[2018-11-25 15:07] VITALS: BP 138/78; PULSE 69; RESP 12; TEMP 97.6
[2018-11-25] MEDS: HYDROcodone/APAP 7.5-325MG 1 EACH TAB PO PRN ×2 (15:19→15:21)
== END 2018-11-25 15:53 | disposition home health service (06) | DRG 470 ==
LOC: 2ORMAIN 10:00 → 4SSUR 15:03 → UNDODISIN 11-24 14:01
PROVIDERS: ADMIT Orthopaedic Surgery; ATTEND Orthopaedic Surgery
PROC: 0SRD069 Replacement of Left Knee Joint with Oxidized Zirconium on Polyethylene Synthetic Substitute, Cemented, Open Approach (ICD-10-PCS; principal; 2018-11-23 11:35)
DX: M17.12 Unilateral primary osteoarthritis, left knee (principal); K21.9 Gastro-esophageal reflux disease without esophagitis; E03.9 Hypothyroidism, unspecified; I95.1 Orthostatic hypotension; K44.9 Diaphragmatic hernia without obstruction or gangrene; Z79.82 Long term (current) use of aspirin; Z79.52 Long term (current) use of systemic steroids; Z79.899 Other long term (current) drug therapy; Z96.651 Presence of right artificial knee joint; Z87.891 Personal history of nicotine dependence; Z95.0 Presence of cardiac pacemaker; Z96.643 Presence of artificial hip joint, bilateral; Z98.49 Cataract extraction status, unspecified eye; Z87.440 Personal history of urinary (tract) infections; Z88.1 Allergy status to other antibiotic agents; Z82.49 Family history of ischemic heart disease and other diseases of the circulatory system
CPT/HCPCS: 85025; 88300

== ENCOUNTER → 2018-12-08 | Outpatient (CLI) | payer MEDICARE ==
--- NOTE | 2018-12-08 16:17 | US ---
EXAMINATION TYPE: US venous doppler duplex LE LT DATE OF EXAM: 12/08/2018 3:57 PM COMPARISON: NONE CLINICAL HISTORY: I80.9 Thrombosis. Left knee replacement 2 weeks ago, swelling SIDE PERFORMED: Left TECHNIQUE: The lower extremity deep venous system is examined utilizing real time linear array sonog nicholas with graded compression, doppler sonography and color-flow sonography. VESSELS IMAGED: External Iliac Vein (EIV) Common Femoral Vein Deep Femoral Vein Greater Saphenous Vein * Femoral Vein Popliteal Vein Small Saphenous Vein * Proximal Calf Veins (* superficial vessels) Grayscale, color doppler, spectral doppler imaging performed of the deep veins of the lower extremiti es. Left Leg: Negative for DVT There is normal flow, compressibility, vascular waveforms. IMPRESSION: No evident deep venous thrombosis at or above the left knee. Follow-up as indicated.
== END | disposition home or self-care (01) ==
LOC: RADUSWWP 15:34
PROVIDERS: ATTEND Orthopaedic Surgery
DX: M17.12 Unilateral primary osteoarthritis, left knee (principal); K21.9 Gastro-esophageal reflux disease without esophagitis; I80.9 Phlebitis and thrombophlebitis of unspecified site; M19.042 Primary osteoarthritis, left hand; Z47.1 Aftercare following joint replacement surgery; Z96.653 Presence of artificial knee joint, bilateral

== ENCOUNTER 2019-01-09 07:06 | Emergency (ER) | payer MEDICARE ==
[2019-01-09 07:15] VITALS: RESP 18
[2019-01-09] MEDS ORDERED: HYDROcodone/APAP 5-325MG 1 EACH TAB PO STA (07:33)
--- NOTE | 2019-01-09 08:15 | ED ---
General Adult HPI - General Chief complaint: Extremity Injury, Lower Stated complaint: Left Leg Pain Time Seen by Provider: 01/09/19 07:16 Source: patient, family, RN notes reviewed Mode of arrival: wheelchair Limitations: no limitations - History of Present Illness Initial comments: 78-year-old female presents to the emergency department for a chief complaint of left leg pain. Patient states she woke up this morning at about 3 AM and had significant left leg pain. Patient thinks this was originating near the knee but is not sure. She denied any back pain. She did admit that movement made the pain worse at the time. Patient had a knee replacement done over one month ago. She recently had a follow-up appointment 2 days ago. Patient has had a negative ultrasound about a month ago for DVT because she had C. diff and swelling of the left leg. Patient states that she has arrived to the emergency department pain has completely subsided. She states she has a pain level of 0 at this time. She states she wouldn't have come if it was feeling like this. Patient has no other complaints at this time including shortness of breath, chest pain, abdominal pain, nausea or vomiting, headache, or visual changes. - Related Data Home Medications Medication Instructions Recorded Confirmed Calcium Carbonate/Vitamin D3 1 tab PO DAILY 11/20/14 11/23/18 [Calcium 600-Vit D3 400 Tablet] Cholecalciferol [Vitamin D3] 1,000 unit PO DAILY 11/20/14 11/23/18 Fludrocortisone [Florinef] 0.1 mg PO DAILY 11/20/14 11/23/18 Nadolol [Corgard] 20 mg PO DAILY 06/25/15 11/23/18 Acetaminophen [Tylenol] 1,000 mg PO DAILY 03/24/16 11/23/18 Aspirin 81 mg PO DAILY 06/26/16 11/23/18 Glucosamine/Chondr Means A Sod [Osteo 1 tab PO BID 08/09/18 11/23/18 Bi-Flex Caplet] Pantoprazole [Protonix] 40 mg PO DAILY 08/09/18 11/23/18 Magnesium 250 mg PO Q48H 11/17/18 11/23/18 Naproxen Sodium [Aleve] 220 mg PO BID PRN 11/17/18 11/23/18 Previous Rx's Medication Instructions Recorded Aspirin 325 mg PO BID #60 tab 11/24/18 Sennosides [Senokot] 1 tab PO BID #60 tablet 11/24/18 HYDROcodone/APAP 7.5-325MG [[place] 1 - 2 tab PO Q4-6H PRN #84 tab 11/25/18 7.5-325] HYDROcodone/APAP 5-325MG [[place] 1 tab PO Q6HR PRN #10 tab 01/09/19 5-325] Allergies Allergy/AdvReac Type Severity Reaction Status Date / Time cephalexin Allergy SOB Verified 11/23/18 15:09 Review of Systems ROS Statement: Those systems with pertinent positive or pertinent negative responses have been documented in the HPI. ROS Other: All systems not noted in ROS Statement are negative. Past Medical History Past Medical History: Eye Disorder, GERD/Reflux, Osteoarthritis (OA), Thyroid Disorder Additional Past Medical History / Comment(s): hiatal hernia, sodium imbalance Last Myocardial Infarction Date:: unknown History of Any Multi-Drug Resistant Organisms: None Reported Past Surgical History: Joint Replacement, Orthopedic Surgery, Pacemaker Additional Past Surgical History / Comment(s): alice hip replacements, rt hip revision, alice foot surgeries, cataract surg left knee replacement 11/23/18 Past Anesthesia/Blood Transfusion Reactions: Motion Sickness Type of Cardiac Device: Permanent Pacemaker Device Placement Date:: 12/27/11 Past Psychological History: No Psychological Hx Reported Smoking Status: Former smoker Past Alcohol Use History: Occasional Past Drug Use History: None Reported - Past Family History Father Family Medical History: Myocardial Infarction ([place]) Mother Family Medical History: No Reported History General Exam Limitations: no limitations General appearance: alert, in no apparent distress Head exam: Present: atraumatic, normocephalic, normal inspection Eye exam: Present: normal appearance, PERRL, EOMI. Absent: scleral icterus, conjunctival injection, periorbital swelling ENT exam: Present: normal exam, mucous membranes moist Neck exam: Present: normal inspection, full ROM. Absent: tenderness, meningismus, lymphadenopathy Respiratory exam: Present: normal lung sounds bilaterally. Absent: respiratory distress, wheezes, rales, rhonchi, stridor Cardiovascular Exam: Present: regular rate, normal rhythm, normal heart sounds. Absent: systolic murmur, diastolic murmur, rubs, gallop, clicks Extremities exam: Present: normal capillary refill (Capillary refill less than 2 seconds in bilateral lower extremities. Patient has a 2+ DP pulse in the right lower extremity. Patient does have Doppler pulses evident in the left lower extremity both DP and PT. Sensation intact in the left lower extremity.) , other (Sensation intact in the left lower extremity. ). Absent: full ROM ( patient has 90 flexion of the left knee which does cause patient some discomfort), joint swelling (No significant edema, erythema, increased warmth noted of the left knee.) Neurological exam: Present: alert, oriented X3, CN II-XII intact Psychiatric exam: Present: normal affect, normal mood Course Vital Signs 01/09/19 07:10 Temperature 98.4 F Pulse Rate 61 Respiratory 18 Rate Blood Pressure 176/71 O2 Sat by Pulse 98 Oximetry Medical Decision Making - Medical Decision Making 78-year-old female presents to the emergency department for a chief complaint of left leg pain. This started about 6 hours ago. Patient woke up with this pain. She states pain was in the fall leg but does admit a may have originated from the knee. On exam patient states pain is completely resolved. Pain level is at a 0. However patient does have some discomfort when flexing the left knee. DP pulse palpable in the right lower extremity, present on Doppler in the left lower 70. However his pain is clearly resolved I do not suspect acute occlusion as she does have a pulse and no pain. Capillary refill less than 2 seconds. No erythema or significant edema noted of the left lower extremity. No increased warmth. No evidence of infection. Ultrasound negative for DVT. X- ray of the left knee and femur are negative for acute abnormality. Patient stating she is ready to go home. At this time patient will be discharged home. She will follow-up with Dr. North who performed her knee surgery. Discussed following up for possible arterial insufficiency as well which patient does agree to do. She will speak with Dr. North and primary care about this first. She will return here if she has worsening symptoms. Disposition Clinical Impression: Postoperative pain of left knee Disposition: HOME SELF-CARE Condition: Good Instructions (If sedation given, give patient instructions): Knee Pain (ED) Additional Instructions: Please follow up with Dr. North tomorrow. Take [place] for pain if needed. Return to the emergency department if you have any worsening symptoms. Prescriptions: HYDROcodone/APAP 5-325MG [[place] 5-325] 1 tab PO Q6HR PRN #10 tab PRN Reason: Pain Is patient prescribed a controlled substance at d/c from ED?: Yes When asked, does pt state using other controlled substances?: No If prescribed controlled substance>3 days was MAPS reviewed?: Prescribed <3 Days If opioid is for acute pain is fill amount 7 days or less?: Yes If Rx opioid, was Start Talking consent form obtained?: Yes Referrals: Inderjit Santos MD [Primary Care Provider] - 1-2 days Time of Disposition: 09:26
--- NOTE | 2019-01-09 08:28 | XR ---
EXAMINATION TYPE: XR femur LT DATE OF EXAM: 01/09/2019 COMPARISON: None HISTORY: Pain TECHNIQUE: 2 view left femur FINDINGS: Left femoral prosthesis is present. No acute fractures at the level of the hip are evident. A left knee prosthesis is present. No acute fracture at the level of the knee is evident. Soft tissu es appear normal. IMPRESSION: 1. Left tip in left knee prosthesis. No acute fractures are evident.
--- NOTE | 2019-01-09 08:29 | XR ---
EXAMINATION TYPE: XR knee complete LT DATE OF EXAM: 01/09/2019 COMPARISON: None HISTORY: Fall, pain TECHNIQUE: 3 view left knee FINDINGS: There is a left knee prosthesis. No acute fractures are evident. No joint effusion is evide nt. Soft tissues are unremarkable. IMPRESSION: 1. No acute osseous abnormality left knee.
--- NOTE | 2019-01-09 08:40 | US ---
EXAMINATION TYPE: US venous doppler duplex LE LT DATE OF EXAM: 01/09/2019 8:33 AM COMPARISON: US 12/08/2018 CLINICAL HISTORY: Pain. Left leg pain, recent left knee replacement SIDE PERFORMED: Left TECHNIQUE: The lower extremity deep venous system is examined utilizing real time linear array sonog nicholas with graded compression, doppler sonography and color-flow sonography. VESSELS IMAGED: External Iliac Vein (EIV) Common Femoral Vein Deep Femoral Vein Greater Saphenous Vein * Femoral Vein Popliteal Vein Small Saphenous Vein * Proximal Calf Veins (* superficial vessels) Left Leg: Negative for DVT IMPRESSION: 1. Left lower extremity ultrasound negative for deep venous thrombosis.
[2019-01-09 09:49] VITALS: BP 151/82; PULSE 65; TEMP 97.6
== END 2019-01-09 09:43 | disposition home or self-care (01) ==
LOC: EC 07:06
DX: M25.562 Pain in left knee (principal); G89.18 Other acute postprocedural pain; M19.90 Unspecified osteoarthritis, unspecified site; Z87.891 Personal history of nicotine dependence; Z79.82 Long term (current) use of aspirin; Z79.899 Other long term (current) drug therapy; Z88.1 Allergy status to other antibiotic agents; Z95.0 Presence of cardiac pacemaker; Z96.652 Presence of left artificial knee joint; Z96.643 Presence of artificial hip joint, bilateral
CPT/HCPCS: 99284

== ENCOUNTER → 2019-04-08 | Outpatient (CLI) | payer MEDICARE ==
--- NOTE | 2019-04-08 15:11 | BD ---
EXAMINATION TYPE: Axial Bone Density DATE OF EXAM: 04/08/2019 COMPARISON: 03/30/2017 CLINICAL HISTORY: Height: 66 IN Weight: 180 LBS RISK FACTORS HISTORY OF: Surgery to Hip(KLEBER): YES When: 1989 Active: LIMITED Postmenopausal woman: AGE 49 Take estrogen and/or progesterone medications: NOT NOW How long: AGE 23-27 Lost more than 2 inches in height since high school: YES 01/17" MEDICATIONS: Additional Medications: OSTEO BI-FLEX, CALCIUM, VIT D,ALEVE,PANTOPRAZOLE, FLUDROCORT, NADOLOL, BABY A SPIRIN, EYE DROPS, EXAM MEASUREMENTS: Bone mineral densitometry was performed using the [employer] System. Bone mineral density as measured about the Lumbar spine is: ----- L1-L4(G/cm2): 1.197 T Score Values are as follows: ----- L2: 0.8 ----- L3: 0.5 ----- L4: -0.2 ----- L1-L4: 0.1 Bone mineral density has: Decreased -0.6% since study of: 03/30/2017 Bone mineral density about the L Wrist (g/cm2): 0.567 T Score values are as follows: -----Dist. R+U: -1.4 -----Prox. R+U: -1.6 -----Radius total: -1.8 Bone mineral density BASELINE IMPRESSION: Osteopenia (T Score between -2.5 and -1). There is slightly increased risk of fracture and the patient may be considered for treatment. Re-Screen 2-5 years. NOTE: T-SCORE=SD OF THE YOUNG ADULT MEAN.
--- NOTE | 2019-04-12 11:32 | MM ---
Reason for exam: screening (asymptomatic). Last mammogram was performed 1 year ago. History: Patient is postmenopausal and history of other cancer. Family history of premenopausal breast cancer in paternal aunt at age 40. Took estrogen for 5 years. Took progesterone for 5 years. Physical Findings: A clinical breast exam by your physician is recommended on an annual basis and results should be correlated with mammographic findings. MG 3D Screening Mammo W/Cad Bilateral CC and MLO view(s) were taken. Prior study comparison: April 02, 2018, bilateral MG 3d screening mammo w/cad. March 30, 2017, bilateral MG 3d screening mammo w/cad. There are scattered fibroglandular densities. There is no discrete abnormality. Left axillary pacemaker redemonstrated. ASSESSMENT: Benign, BI-RAD 2 RECOMMENDATION: Routine screening mammogram of both breasts in 1 year.
== END ==
LOC: RADMAMWWP 08:32
PROVIDERS: ATTEND Family Medicine
DX: Z12.31 Encounter for screening mammogram for malignant neoplasm of breast (principal); M85.80 Other specified disorders of bone density and structure, unspecified site; Z78.0 Asymptomatic menopausal state
CPT/HCPCS: 77063; 77067; 77080

== ENCOUNTER → 2019-12-16 | Outpatient (CLI) | payer MEDICARE ==
--- NOTE | 2019-12-16 09:06 | CT ---
EXAMINATION TYPE: CT lumbar spine wo con DATE OF EXAM: 12/16/2019 COMPARISON: None HISTORY: Low back pain CT DLP: [address] of the lumbar spine was performed. Bone and soft tissue window settings are submitted as well as coronal and sagittal reconstructions. L1-L2: Severe degenerative disc space narrowing and vacuum disc. Posterior disc bulge with effacement ventral thecal sac. No evidence for central stenosis. Facet joint arthropathy resulting in mild bila teral foraminal encroachment. L2-L3: Severe degenerative disc space narrowing and vacuum disc. Posterior disc bulge with effacement ventral thecal sac. No evidence for central stenosis. Facet joint arthropathy resulting in mild bila teral foraminal encroachment. L3-L4: Severe degenerative disc disease with posterior disc bulge hypertrophy of the ligamentum flavu m and facet joint arthropathy resulting in moderate central stenosis and bilateral foraminal encroach ment. L4-L5: Severe degenerative disc disease with vacuum disc. Grade 1 anterolisthesis of L4 and L5 measur ing 6.4 mm. Posterior disc bulge with bilateral lateral recess stenosis however no evidence for centr al stenosis at this time. Severe facet joint arthropathy. L5-S1: Vacuum disc. Posterior disc bulge. Right lateral recess stenosis and right foraminal encroachm ent without central stenosis. No miles herniation seen. No paraspinal masses are identified. Lumbar segments are free of fracture. IMPRESSION: 1. Degenerative disc disease as discussed with central stenosis at L3-4. See above.
== END | disposition home or self-care (01) ==
LOC: RADCTMAIN 07:51
PROVIDERS: ATTEND Orthopaedic Surgery Orthopaedic Surgery of the Spine
DX: M48.061 Spinal stenosis, lumbar region without neurogenic claudication (principal); M51.36 Other intervertebral disc degeneration, lumbar region; M43.16 Spondylolisthesis, lumbar region; M51.86 Other intervertebral disc disorders, lumbar region; M46.96 Unspecified inflammatory spondylopathy, lumbar region
CPT/HCPCS: 72131

== ENCOUNTER → 2020-03-07 | Outpatient (CLI) | payer MEDICARE ==
[2020-03-07 10:01] LABS: Basophils % (A) 1 %; Eosinophils # (A) 0.3 k/uL (0-0.7); Eosinophils % (A) 5 %; HCT 39.5 % (34.0-46.0); HGB 12.7 gm/dL (11.4-16.0); Lymphocytes % (A) 34 %; MCH 29.9 pg (25.0-35.0); MCHC 32.1 g/dL (31.0-37.0); MCV 93.1 fL (80.0-100.0); Monocytes # (A) 0.3 k/uL (0-1.0); Monocytes % (A) 5 %; Neutrophils % (A) 52 %; Platelet Count 219 k/uL (150-450); RBC 4.25 m/uL (3.80-5.40); RDW 12.7 % (11.5-15.5); WBC 5.7 k/uL (3.8-10.6)
[2020-03-07 15:54] LABS: African American GFR (CKD) 94.2 (60.0-200.0); Albumin 4.2 g/dL (3.80-4.90); Albumin/Globulin Ratio 2.33 (1.60-3.17); Anion Gap 10.2 mmol/L (4.00-12.00); BUN/Creat Ratio 22.86 Ratio (12.00-20.00); Calcium 9.2 mg/dL (8.7-10.3); Carbon Dioxide 28.8 mmol/L (21.6-31.8); Chol/HDL Ratio 3.05; Globulin 1.8 g/dL (1.6-3.3); LDL Cholesterol,Calculated 102.2 mg/dL (0.0-131.0); Non-African American GFR(CKD) 81.3 (60.0-200.0); Potassium 4.2 mmol/L (3.5-5.5); Total Bilirubin 0.6 mg/dL (0.2-1.2); VLDL Calculation 16.8 mg/dL (5.00-40.00)
== END | disposition home or self-care (01) ==
LOC: LABWHC1 09:20
PROVIDERS: ATTEND Family Medicine
DX: E78.5 Hyperlipidemia, unspecified (principal)
CPT/HCPCS: 36415; 80053; 80061; 85025

== ENCOUNTER → 2020-05-07 | Outpatient (CLI) | payer MEDICARE ==
--- NOTE | 2020-05-08 09:11 | MM ---
Reason for exam: screening (asymptomatic). Last mammogram was performed 1 year and 1 month ago. History: Patient is postmenopausal and history of other cancer. Family history of premenopausal breast cancer in paternal aunt at age 40. Took estrogen for 5 years. Took progesterone for 5 years. Physical Findings: A clinical breast exam by your physician is recommended on an annual basis and results should be correlated with mammographic findings. MG 3D Screening Mammo W/Cad Bilateral CC and MLO view(s) were taken. Prior study comparison: April 08, 2019, bilateral MG 3d screening mammo w/cad. April 02, 2018, bilateral MG 3d screening mammo w/cad. There are scattered fibroglandular densities. There is no discrete abnormality. No significant changes when compared with prior studies. ASSESSMENT: Negative, BI-RAD 1 RECOMMENDATION: Routine screening mammogram of both breasts in 1 year.
== END | disposition home or self-care (01) ==
LOC: RADMAMWWP 15:12
PROVIDERS: ATTEND Family Medicine
DX: Z12.31 Encounter for screening mammogram for malignant neoplasm of breast (principal)
CPT/HCPCS: 77063; 77067

== ENCOUNTER → 2020-08-15 | Outpatient (CLI) | payer MEDICARE ==
[2020-08-15 16:07] LABS: African American GFR (CKD) >90 (>60 ml/min/1.73 sqM); Blood Urea Nitrogen 18 mg/dL (7-17); Non-African American GFR(CKD) 83 (>60 ml/min/1.73 sqM)
--- NOTE | 2020-08-16 09:59 | CT ---
EXAMINATION TYPE: CT chest w con DATE OF EXAM: 08/15/2020 COMPARISON: 11/02/2012 HISTORY: lung nodule CT DLP: 327.90 mGycm, Automated exposure control for dose reduction was used. CONTRAST: Performed injected with 100 mL of Isovue 300. TECHNIQUE: Axial images were obtained at 5 mm thick sections. Reconstructed images are reviewed on [email or web address] computer in the coronal plane. FINDINGS: Portion of the thyroid visualized is mild heterogeneity. Some thickening at the right apex appears stable. There is a 1.3 cm right peribronchial lymph node at the level of the right main bronchus. The ascending aorta diameter at the level of the main pulmonary artery is 3.2 cm. The main pulmonary artery diameter at the bifurcation is 2.[address] sections are obtained through the upper abdomen. Abdomen is essentially unremarkable. Hiat al hernia is present. IMPRESSIONS: 1. Stable density at the right apex. 2. Enlarged right peribronchial lymph node
== END | disposition home or self-care (01) ==
LOC: RADCTMAIN 15:31
PROVIDERS: ATTEND Family Medicine
DX: R59.0 Localized enlarged lymph nodes (principal); I10 Essential (primary) hypertension; R91.1 Solitary pulmonary nodule
CPT/HCPCS: 82565; 84520; 71260; 36415; Q9967

== ENCOUNTER → 2021-06-10 | Outpatient (CLI) | payer MEDICARE ==
--- NOTE | 2021-06-10 18:54 | BD ---
EXAMINATION TYPE: Axial Bone Density DATE OF EXAM: 06/10/2021 COMPARISON: 04/08/2019 CLINICAL HISTORY: 81-year-old female postmenopausal screening Height: 65 IN Weight: 169 LBS FRAX RISK QUESTIONS: History of Fracture in Adulthood: TOES AGE 51 RISK FACTORS HISTORY OF: Surgery to Hip([facility]LEBER): AGE 49 Active: LIMITED Postmenopausal woman: AGE 49 Lost more than 2 inches in height since high school: YES 3 11/17" MEDICATIONS: Additional Medications: CALCIUM, VIT D, HEART MEDS, GERD MEDS EXAM MEASUREMENTS: Bone mineral densitometry was performed using the [employer] System. Bone mineral density as measured about the Lumbar spine is: ----- L1-L4(G/cm2): 1.068 T Score Values are as follows: ----- L2: 0.1 ----- L3: -0.3 ----- L4: -1.8 ----- L1-L4: -0.9 Bone mineral density has: Decreased -9.9% since study of: 04/08/2019 KLEBER HIP REPLACEMENTS Bone mineral density about the L Wrist (g/cm2): 0.400 T Score values are as follows: -----Dist. R+U: -4.6 -----Prox. R+U: -3.5 -----Radius total: -4.5 Bone mineral density has: Decreased -23.0% since study of: 04/08/2019 IMPRESSION: Osteoporosis (T Score less than -2.5) as indicated by T score values in the left wrist. There is increased fracture risk and therapy is usually indicated based on age. Re-Screen 1-2 years. NOTE: T-SCORE=SD OF THE YOUNG ADULT MEAN.
--- NOTE | 2021-06-13 14:25 | MM ---
Reason for exam: screening (asymptomatic). Last mammogram was performed 1 year and 1 month ago. History: Patient is postmenopausal and history of other cancer. Family history of premenopausal breast cancer in paternal aunt at age 40. Took hormonal contraceptives for 5 years. Took estrogen for 5 years. Took progesterone for 5 years. Physical Findings: A clinical breast exam by your physician is recommended on an annual basis and results should be correlated with mammographic findings. MG 3D Screening Mammo W/Cad Bilateral CC and MLO view(s) were taken. Prior study comparison: May 07, 2020, bilateral MG 3d screening mammo w/cad. April 08, 2019, bilateral MG 3d screening mammo w/cad. There are scattered fibroglandular densities. Pacer over left MLO. No significant changes when compared with prior studies. ASSESSMENT: Benign, BI-RAD 2 RECOMMENDATION: Routine screening mammogram of both breasts in 1 year.
== END | disposition home or self-care (01) ==
LOC: RADMAMWWP 09:58
PROVIDERS: ATTEND Family Medicine
DX: Z12.31 Encounter for screening mammogram for malignant neoplasm of breast (principal); M81.0 Age-related osteoporosis without current pathological fracture; Z78.0 Asymptomatic menopausal state
CPT/HCPCS: 77063; 77067; 77080

== ENCOUNTER 2021-06-13 21:13 | Emergency (ER) | payer MEDICARE ==
[2021-06-13 21:25] VITALS: TEMP 98.2
[2021-06-13] MEDS ORDERED: SODIUM CHLORIDE 0.9% 1,000 ML IV STA (21:32)
[2021-06-13 21:36] LABS: Glucose,Whole Blood 99 mg/dL (75-99)
--- NOTE | 2021-06-13 21:56 | ED ---
Weakness HPI - General Chief complaint: Weakness Stated complaint: Facial tingling,Head fog,Weakness Time Seen by Provider: 06/13/21 21:32 Source: patient, RN notes reviewed, old records reviewed Mode of arrival: ambulatory Limitations: no limitations - History of Present Illness Initial comments: This is an 81-year-old female who presents today for feelings of near syncope 3 days of not feeling well. Concern is that something may be wrong with her p acemaker or defibrillator. Patient unsure exactly what model or what she has. Patient has no recent travel history or sick contacts no fevers. Patient has significant history of heart and arrhythmia. Otherwise has been feeling a little fatigue breath no chest pain no shortness of breath no abdominal pain. No fevers nausea vomiting or diarrhea MD Complaint: generalized weakness -: days(s) (3) Location: generalized Severity: moderate Severity scale (1-10): 4 Quality: aching Consistency: intermittent Improves with: none (As he never comes is late ) Worsens with: none Context: recent illness Associated Symptoms: denies other symptoms - Related Data Home Medications Medication Instructions Recorded Confirmed nadoloL [Corgard] 20 mg PO DAILY 06/25/15 06/13/21 Pantoprazole [Protonix] 40 mg PO DAILY 08/09/18 06/13/21 Naproxen Sodium [Aleve] 220 mg PO BID PRN 11/17/18 06/13/21 Calcium Carbonate [Calcium] 600 mg PO DAILY 06/13/21 06/13/21 Cholecalciferol [Vitamin D3 (25 25 mcg PO DAILY 06/13/21 06/13/21 Mcg = 1000 Iu)] Allergies Allergy/AdvReac Type Severity Reaction Status Date / Time cephalexin Allergy SOB Verified 06/13/21 22:26 Review of Systems ROS Statement: Those systems with pertinent positive or pertinent negative responses have been documented in the HPI. ROS Other: All systems not noted in ROS Statement are negative. Past Medical History Past Medical History: Eye Disorder, GERD/Reflux, Osteoarthritis (OA), Thyroid Disorder Additional Past Medical History / Comment(s): hiatal hernia, sodium imbalance Last Myocardial Infarction Date:: unknown History of Any Multi-Drug Resistant Organisms: None Reported Past Surgical History: Joint Replacement, Orthopedic Surgery, Pacemaker Additional Past Surgical History / Comment(s): alice hip replacements, rt hip revision, alice foot surgeries, cataract surg left knee replacement 11/23/18 right knee replacement, laminectomu Past Anesthesia/Blood Transfusion Reactions: Motion Sickness Type of Cardiac Device: Permanent Pacemaker Device Placement Date:: 12/27/11 Past Psychological History: No Psychological Hx Reported Smoking Status: Former smoker Past Alcohol Use History: Occasional Past Drug Use History: None Reported - Past Family History Father Family Medical History: Myocardial Infarction (NM) Mother Family Medical History: No Reported History General Exam Limitations: no limitations General appearance: alert, in no apparent distress Head exam: Present: atraumatic, normocephalic, normal inspection Eye exam: Present: normal appearance, PERRL, EOMI. Absent: scleral icterus, conjunctival injection, periorbital swelling ENT exam: Present: normal exam, mucous membranes moist Neck exam: Present: normal inspection. Absent: tenderness, meningismus, lymphadenopathy Respiratory exam: Present: normal lung sounds bilaterally. Absent: respiratory distress, wheezes, rales, rhonchi, stridor Cardiovascular Exam: Present: regular rate, normal rhythm, normal heart sounds. Absent: systolic murmur, diastolic murmur, rubs, gallop, clicks GI/Abdominal exam: Present: soft, normal bowel sounds. Absent: distended, tenderness, guarding, rebound, rigid Extremities exam: Present: normal inspection, full ROM, normal capillary refill. Absent: tenderness, pedal edema, joint swelling, calf tenderness Back exam: Present: normal inspection Neurological exam: Present: alert, oriented X3, CN II-XII intact Psychiatric exam: Present: normal affect, normal mood Skin exam: Present: warm, dry, intact, normal color. Absent: rash Course Vital Signs 06/13/21 06/14/21 21:19 00:29 Temperature 98.2 F Pulse Rate 56 L 58 L Respiratory 17 16 Rate Blood Pressure 138/81 140/73 O2 Sat by Pulse 96 96 Oximetry - Reevaluation(s) Reevaluation #1: 06/14/21 Medical record is reviewed Patient symptoms Remain the same although she feels comfortable for discharge Attempted pacemaker interrogation is made but unable to be completed Patient informed of all the results and questions are answered EKG Findings - EKG Comments: EKG Findings:: EKG is sinus bradycardia 53 [place] 210 QRS 110 QTc 426 Medical Decision Making - Medical Decision Making 81 female to the ER for feelings of symptoms of near-syncope feels like she has which is pass out before. Patient currently presents to the ER for evaluation concerned that her pacer device may not be working. Otherwise she denies chest pain other complaint. We are unable to anterior patient here in the ER patient prefers discharge - Lab Data Result diagrams: 06/13/21 21:32 06/13/21 21:32 Lab Results 06/13/21 06/13/21 06/13/21 Range/Units 21:32 21:32 21:32 WBC 6.1 (3.8-10.6) k/uL RBC 4.02 (3.80-5.40) m/uL Hgb 12.6 (11.4-16.0) gm/dL Hct 37.7 (34.0-46.0) % MCV 93.8 (80.0-100.0) fL MCH 31.4 (25.0-35.0) pg MCHC 33.4 (31.0-37.0) g/dL RDW 12.9 (11.5-15.5) % Plt Count 198 (150-450) k/uL MPV 7.9 Neutrophils % (Manual) 42 % Lymphocytes % (Manual) 48 % Monocytes % (Manual) 4 % Eosinophils % (Manual) 6 % Neutrophils # (Manual) 2.56 (1.3-7.7) k/uL Lymphocytes # (Manual) 2.93 (1.0-4.8) k/uL Monocytes # (Manual) 0.24 (0-1.0) k/uL Eosinophils # (Manual) 0.37 (0-0.7) k/uL Nucleated RBCs 0 (0-0) /100 WBC Manual Slide Review Performed Reactive Lymphocytes Present PT 9.7 (9.0-12.0) sec INR 0.9 (<1.2) APTT 21.8 L (22.0-30.0) sec Sodium 136 L (137-145) mmol/L Potassium 4.4 (3.5-5.1) mmol/L Chloride 108 H (98-107) mmol/L Carbon Dioxide 22 (22-30) mmol/L Anion Gap 6 mmol/L BUN 22 H (7-17) mg/dL Creatinine 0.71 (0.52-1.04) mg/dL Est GFR (CKD-EPI)AfAm >90 (>60 ml/min/1.73 sqM) Est GFR (CKD-EPI)NonAf 80 (>60 ml/min/1.73 sqM) Glucose 99 (74-99) mg/dL POC Glucose (mg/dL) (75-99) mg/dL POC Glu Embedded Nurse ID Plasma Lactic Acid David (0.7-2.0) mmol/L Calcium 9.1 (8.4-10.2) mg/dL Phosphorus 4.1 (2.5-4.5) mg/dL Magnesium 2.0 (1.6-2.3) mg/dL Total Bilirubin 0.2 (0.2-1.3) mg/dL AST 25 (14-36) U/L ALT 12 (4-34) U/L Alkaline Phosphatase 85 (38-126) U/L Creatine Kinase 37 (30-135) U/L Troponin I (0.000-0.034) ng/mL NT-Pro-B Natriuret Pep pg/mL Total Protein 6.2 L (6.3-8.2) g/dL Albumin 3.7 (3.5-5.0) g/dL TSH 1.200 (0.465-4.680) mIU/L Urine Color Urine Appearance (Clear) Urine pH (5.0-8.0) Ur Specific Berkey (1.001-1.035) Urine Protein (Negative) Urine Glucose (UA) (Negative) Urine Ketones (Negative) Urine Blood (Negative) Urine Nitrite (Negative) Urine Bilirubin (Negative) Urine Urobilinogen (<2.0) mg/dL Ur Leukocyte Esterase (Negative) Urine RBC (0-5) /hpf Urine WBC (0-5) /hpf Ur Squamous Epith Cells (0-4) /hpf Urine Mucus (None) /hpf 06/13/21 06/13/21 06/13/21 Range/Units 21:32 21:32 21:32 WBC (3.8-10.6) k/uL RBC (3.80-5.40) m/uL Hgb (11.4-16.0) gm/dL Hct (34.0-46.0) % MCV (80.0-100.0) fL MCH (25.0-35.0) pg MCHC (31.0-37.0) g/dL RDW (11.5-15.5) % Plt Count (150-450) k/uL MPV Neutrophils % (Manual) % Lymphocytes % (Manual) % Monocytes % (Manual) % Eosinophils % (Manual) % Neutrophils # (Manual) (1.3-7.7) k/uL Lymphocytes # (Manual) (1.0-4.8) k/uL Monocytes # (Manual) (0-1.0) k/uL Eosinophils # (Manual) (0-0.7) k/uL Nucleated RBCs (0-0) /100 WBC Manual Slide Review Reactive Lymphocytes PT (9.0-12.0) sec INR (<1.2) APTT (22.0-30.0) sec Sodium (137-145) mmol/L Potassium (3.5-5.1) mmol/L Chloride (98-107) mmol/L Carbon Dioxide (22-30) mmol/L Anion Gap mmol/L BUN (7-17) mg/dL Creatinine (0.52-1.04) mg/dL Est GFR (CKD-EPI)AfAm (>60 ml/min/1.73 sqM) Est GFR (CKD-EPI)NonAf (>60 ml/min/1.73 sqM) Glucose (74-99) mg/dL POC Glucose (mg/dL) (75-99) mg/dL POC Glu Embedded Nurse ID Plasma Lactic Acid David 0.9 (0.7-2.0) mmol/L Calcium (8.4-10.2) mg/dL Phosphorus (2.5-4.5) mg/dL Magnesium (1.6-2.3) mg/dL Total Bilirubin (0.2-1.3) mg/dL AST (14-36) U/L ALT (4-34) U/L Alkaline Phosphatase (38-126) U/L Creatine Kinase (30-135) U/L Troponin I <0.012 (0.000-0.034) ng/mL NT-Pro-B Natriuret Pep 333 pg/mL Total Protein (6.3-8.2) g/dL Albumin (3.5-5.0) g/dL TSH (0.465-4.680) mIU/L Urine Color Urine Appearance (Clear) Urine pH (5.0-8.0) Ur Specific Berkey (1.001-1.035) Urine Protein (Negative) Urine Glucose (UA) (Negative) Urine Ketones (Negative) Urine Blood (Negative) Urine Nitrite (Negative) Urine Bilirubin (Negative) Urine Urobilinogen (<2.0) mg/dL Ur Leukocyte Esterase (Negative) Urine RBC (0-5) /hpf Urine WBC (0-5) /hpf Ur Squamous Epith Cells (0-4) /hpf Urine Mucus (None) /hpf 06/13/21 06/13/21 Range/Units 21:33 22:50 WBC (3.8-10.6) k/uL RBC (3.80-5.40) m/uL Hgb (11.4-16.0) gm/dL Hct (34.0-46.0) % MCV (80.0-100.0) fL MCH (25.0-35.0) pg MCHC (31.0-37.0) g/dL RDW (11.5-15.5) % Plt Count (150-450) k/uL MPV Neutrophils % (Manual) % Lymphocytes % (Manual) % Monocytes % (Manual) % Eosinophils % (Manual) % Neutrophils # (Manual) (1.3-7.7) k/uL Lymphocytes # (Manual) (1.0-4.8) k/uL Monocytes # (Manual) (0-1.0) k/uL Eosinophils # (Manual) (0-0.7) k/uL Nucleated RBCs (0-0) /100 WBC Manual Slide Review Reactive Lymphocytes PT (9.0-12.0) sec INR (<1.2) APTT (22.0-30.0) sec Sodium (137-145) mmol/L Potassium (3.5-5.1) mmol/L Chloride (98-107) mmol/L Carbon Dioxide (22-30) mmol/L Anion Gap mmol/L BUN (7-17) mg/dL Creatinine (0.52-1.04) mg/dL Est GFR (CKD-EPI)AfAm (>60 ml/min/1.73 sqM) Est GFR (CKD-EPI)NonAf (>60 ml/min/1.73 sqM) Glucose (74-99) mg/dL POC Glucose (mg/dL) 99 (75-99) mg/dL POC Glu Embedded Nurse ID Luisa Reynoso Plasma Lactic Acid David (0.7-2.0) mmol/L Calcium (8.4-10.2) mg/dL Phosphorus (2.5-4.5) mg/dL Magnesium (1.6-2.3) mg/dL Total Bilirubin (0.2-1.3) mg/dL AST (14-36) U/L ALT (4-34) U/L Alkaline Phosphatase (38-126) U/L Creatine Kinase (30-135) U/L Troponin I (0.000-0.034) ng/mL NT-Pro-B Natriuret Pep pg/mL Total Protein (6.3-8.2) g/dL Albumin (3.5-5.0) g/dL TSH (0.465-4.680) mIU/L Urine Color Light Yellow Urine Appearance Clear (Clear) Urine pH 6.0 (5.0-8.0) Ur Specific Berkey 1.007 (1.001-1.035) Urine Protein Negative (Negative) Urine Glucose (UA) Negative (Negative) Urine Ketones Negative (Negative) Urine Blood Negative (Negative) Urine Nitrite Negative (Negative) Urine Bilirubin Negative (Negative) Urine Urobilinogen <2.0 (<2.0) mg/dL Ur Leukocyte Esterase Small H (Negative) Urine RBC 1 (0-5) /hpf Urine WBC 2 (0-5) /hpf Ur Squamous Epith Cells 1 (0-4) /hpf Urine Mucus Rare H (None) /hpf - Radiology Data Radiology results: report reviewed (Chest x-rays negative for acute disease), image reviewed Disposition Clinical Impression: Weakness, Encounter for interrogation of cardiac pacemaker Disposition: HOME SELF-CARE Condition: Good Instructions (If sedation given, give patient instructions): Weakness (ED) Is patient prescribed a controlled substance at d/c from ED?: No Referrals: Inderjit Santos MD [Primary Care Provider] - 1-2 days
[2021-06-13 22:23] LABS: ALT 12 U/L (4-34); AST 25 U/L (14-36); African American GFR (CKD) >90 (>60 ml/min/1.73 sqM); Albumin 3.7 g/dL (3.5-5.0); Alkaline Phosphatase 85 U/L (38-126); Anion Gap 6 mmol/L; Blood Urea Nitrogen 22 mg/dL (7-17); Calcium 9.1 mg/dL (8.4-10.2); Carbon Dioxide 22 mmol/L (22-30); Chloride 108 mmol/L (98-107); Creatine Kinase 37 U/L (30-135); Glucose 99 mg/dL (74-99); Non-African American GFR(CKD) 80 (>60 ml/min/1.73 sqM); Phosphorus 4.1 mg/dL (2.5-4.5); Potassium 4.4 mmol/L (3.5-5.1); Sodium 136 mmol/L (137-145); Total Bilirubin 0.2 mg/dL (0.2-1.3); Total Protein 6.2 g/dL (6.3-8.2)
[2021-06-13 22:32] LABS: INR 0.9 (<1.2); Partial Thromboplastin Time 21.8 sec (22.0-30.0); Prothrombin Time 9.7 sec (9.0-12.0)
--- NOTE | 2021-06-13 22:41 | XR ---
EXAMINATION TYPE: XR chest 2V DATE OF EXAM: 06/13/2021 COMPARISON: 11/20/2014 HISTORY: Weakness TECHNIQUE: 2 views FINDINGS: Heart is normal. Lungs are clear. Diaphragm is normal. Bony thorax is intact. There is left axillary pacemaker. There are chest leads. There is probably a hiatal hernia. Bony thorax is intact. There is no heart failure. IMPRESSION: No active cardiopulmonary disease. No change.
[2021-06-13 22:48] LABS: HCT 37.7 % (34.0-46.0); HGB 12.6 gm/dL (11.4-16.0); MCH 31.4 pg (25.0-35.0); MCHC 33.4 g/dL (31.0-37.0); MCV 93.8 fL (80.0-100.0); Mean Platelet Volume 7.9; Platelet Count 198 k/uL (150-450); RBC 4.02 m/uL (3.80-5.40); RDW 12.9 % (11.5-15.5); WBC 6.1 k/uL (3.8-10.6)
[2021-06-13 23:29] LABS: Appearance,Urine Clear (Clear); Bilirubin,Urine Negative (Negative); Blood,Urine Negative (Negative); Color,Urine Light Yellow; Glucose,Urine (UA) Negative (Negative); Ketones,Urine Negative (Negative); Leukocyte Esterase,Urine Small (Negative); Mucus,Urine Rare /hpf; Nitrite,Urine Negative (Negative); Protein,Urine Negative (Negative); RBC,Urine 1 /hpf (0-5); Specific Gravity,Urine 1.007 (1.001-1.035); Squamous Epithelial Cell,Urine 1 /hpf (0-4); Urobilinogen,Urine <2.0 mg/dL (<2.0); WBC,Urine 2 /hpf (0-5)
[2021-06-14] LABS: Eosinophils # (M) 0.37 k/uL (0-0.7); Lymphocytes # (M) 2.93 k/uL (1.0-4.8); Monocytes # (M) 0.24 k/uL (0-1.0); Neutrophils # (M) 2.56 k/uL (1.3-7.7); Neutrophils % (M) 42 %; Nucleated Red Blood Cells 0 /100 WBC (0-0); Total Cells Counted 100
[2021-06-14 00:01] LABS: Reactive Lymphocytes Present
[2021-06-14 00:31] VITALS: BP 140/73; PULSE 58; RESP 16
== END 2021-06-14 01:01 | disposition home or self-care (01) ==
LOC: EC 21:13
DX: R53.1 Weakness (principal); R20.2 Paresthesia of skin; R53.83 Other fatigue; R55 Syncope and collapse; I25.2 Old myocardial infarction; K21.9 Gastro-esophageal reflux disease without esophagitis; Z95.0 Presence of cardiac pacemaker; Z87.891 Personal history of nicotine dependence; Z88.1 Allergy status to other antibiotic agents; Z79.899 Other long term (current) drug therapy
CPT/HCPCS: 36415; 71046; 80053; 81001; 82550; 83605; 83735; 83880; 84100; 84443; 84484; 85025; 85610; 85730; 93005; 96360; 96361; 99285

== ENCOUNTER 2022-04-30 17:42 | Emergency (ER) | payer MEDICARE ==
[2022-04-30] MEDS ORDERED: SODIUM CHLORIDE 0.9% 1,000 ML IV STA (18:45)
--- NOTE | 2022-04-30 19:26 | ED ---
General Adult HPI - General Chief complaint: Shortness of Breath Stated complaint: SOB/Pain In back/tingling in arms/head Time Seen by Provider: 04/30/22 18:23 Source: patient Mode of arrival: wheelchair Limitations: no limitations - History of Present Illness Initial comments: Patient is an 82-year-old female presenting with chief complaint of left-sided scapula pain. Patient states the pain started around 8:30 this morning. Pain is only present with exertion, at rest pain is completely alleviated, she requested a 7 out of 10 and describes it as dull. Patient is also complaining of generalized weakness. She denies any chest pain or pressure, shortness of breath, diaphoresis, abdominal pain, nausea, vomiting. Pain is not positional. Patient has a pacemaker, no history of SC. No radiation of pain down the arm or up the side of the neck. Denies any fever, chills. No cough, headache, vision or hearing changes. - Related Data Home Medications Medication Instructions Recorded Confirmed nadoloL [Corgard] 20 mg PO HS 06/25/15 04/30/22 Pantoprazole [Protonix] 40 mg PO DAILY 08/09/18 04/30/22 Naproxen Sodium [Aleve] 220 mg PO BID PRN 11/17/18 04/30/22 Calcium Carbonate/Vitamin D3 1 tab PO HS 04/30/22 04/30/22 [Calcium 500-Vit D3 15 Mcg (600 Iu)] Fludrocortisone [Florinef] 0.1 mg PO DAILY 04/30/22 04/30/22 Multivitamins, Thera [Multivitamin 1 tab PO DAILY 04/30/22 04/30/22 (formulary)] Oxybutynin Chloride [Ditropan XL] 5 mg PO HS 04/30/22 04/30/22 Propylene Glycol/Peg 400/Pf 1 drop BOTH EYES QID PRN 04/30/22 04/30/22 [Systane 0.3-0.4% Eye Drop] Allergies Allergy/AdvReac Type Severity Reaction Status Date / Time amoxicillin [From Augmentin] Allergy Unknown Verified 04/30/22 19:28 cephalexin Allergy SOB Verified 04/30/22 19:28 clavulanic acid Allergy Unknown Verified 04/30/22 19:28 [From Augmentin] Review of Systems ROS Statement: Those systems with pertinent positive or pertinent negative responses have been documented in the HPI. ROS Other: All systems not noted in ROS Statement are negative. Past Medical History Past Medical History: Eye Disorder, GERD/Reflux, Osteoarthritis (OA), Thyroid Disorder Additional Past Medical History / Comment(s): hiatal hernia, sodium imbalance Last Myocardial Infarction Date:: unknown History of Any Multi-Drug Resistant Organisms: None Reported Past Surgical History: Joint Replacement, Orthopedic Surgery, Pacemaker Additional Past Surgical History / Comment(s): alice hip replacements, rt hip revision, alice foot surgeries, cataract surg left knee replacement 11/23/18 right knee replacement, laminectomu Past Anesthesia/Blood Transfusion Reactions: Motion Sickness Type of Cardiac Device: Permanent Pacemaker Device Placement Date:: 12/27/11 Past Psychological History: No Psychological Hx Reported Smoking Status: Former smoker Past Alcohol Use History: Occasional Past Drug Use History: None Reported - Past Family History Father Family Medical History: Myocardial Infarction (SC) Mother Family Medical History: No Reported History General Exam Limitations: no limitations General appearance: alert, in no apparent distress Head exam: Present: atraumatic, normocephalic, normal inspection Eye exam: Present: normal appearance, EOMI. Absent: scleral icterus, periorbital swelling Neck exam: Present: normal inspection Respiratory exam: Present: normal lung sounds bilaterally. Absent: respiratory distress, wheezes, rales, rhonchi, stridor Cardiovascular Exam: Present: regular rate, normal rhythm, normal heart sounds. Absent: systolic murmur, diastolic murmur, rubs, gallop, clicks Back exam: Present: normal inspection, tenderness Neurological exam: Present: alert, oriented X3, CN II-XII intact Psychiatric exam: Present: normal affect, normal mood Skin exam: Present: warm, dry, intact, normal color. Absent: rash Course Vital Signs 04/30/22 04/30/22 04/30/22 18:18 19:08 22:00 Temperature 98.2 F Pulse Rate 53 L 78 57 L Respiratory 18 18 16 Rate Blood Pressure 177/76 183/103 162/98 O2 Sat by Pulse 96 95 95 Oximetry EKG Findings - EKG Comments: EKG Findings:: Rate of 49 electronic atrial pacemaker. ND interval 244. QRS duration 121. No acute changes from previous EKG Medical Decision Making - Medical Decision Making Patient is an 82-year-old female presenting with chief complaint of left scapular pain that started this morning. Patient states pain is only present when she is sitting up or exerting herself. There is no pain at rest. She denies any chest pain, shortness of breath, pain radiating down the arm or up the neck, diaphoresis, nausea, vomiting. Examination is unremarkable. CBC is unremarkable. CMP, troponin, BNP are unremarkable. D-dimer is 0.76. CTA shows no evidence of pulmonary embolism, there is right upper lobe consolidation that is unchanged dating back to 2019. EKG shows no new ischemic changes. On reassessment patient is resting comfortably, she is sitting at the side of the bed stating that now when she sits up or stands the pain is not present. Pain is likely musculoskeletal in origin. Patient has low risk history with no history of SC, CAD, DM, or abnormal stress tests. Patient appears stable for discharge with outpatient follow-up at this time. Follow-up with PCP in one to 2 days. Report back to ER with any new or worsening symptoms. I discussed return parameters and alarming symptoms. Answered all questions. Patient conveyed verbal understanding and agreed to the plan. I discussed this case with my attending Dr. Lange - Lab Data Result diagrams: 04/30/22 18:57 04/30/22 18:57 Lab Results 04/30/22 04/30/22 04/30/22 Range/Units 18:57 18:57 18:57 WBC 6.4 (3.8-10.6) k/uL RBC 4.09 (3.80-5.40) m/uL Hgb 12.4 (11.4-16.0) gm/dL Hct 38.3 (34.0-46.0) % MCV 93.6 (80.0-100.0) fL MCH 30.4 (25.0-35.0) pg MCHC 32.4 (31.0-37.0) g/dL RDW 13.4 (11.5-15.5) % Plt Count 205 (150-450) k/uL MPV 8.3 Neutrophils % (Manual) 48 % Lymphocytes % (Manual) 38 % Monocytes % (Manual) 8 % Eosinophils % (Manual) 6 % Neutrophils # (Manual) 3.07 (1.3-7.7) k/uL Lymphocytes # (Manual) 2.43 (1.0-4.8) k/uL Monocytes # (Manual) 0.51 (0-1.0) k/uL Eosinophils # (Manual) 0.38 (0-0.7) k/uL Nucleated RBCs 0 (0-0) /100 WBC Manual Slide Review Performed RBC Morphology Normal PT (9.0-12.0) sec INR (<1.2) APTT (22.0-30.0) sec D-Dimer (<0.60) mg/L FEU Sodium 138 (137-145) mmol/L Potassium 3.6 (3.5-5.1) mmol/L Chloride 108 H (98-107) mmol/L Carbon Dioxide 26 (22-30) mmol/L Anion Gap 4 mmol/L BUN 18 H (7-17) mg/dL Creatinine 0.66 (0.52-1.04) mg/dL Est GFR (CKD-EPI)AfAm >90 (>60 ml/min/1.73 sqM) Est GFR (CKD-EPI)NonAf 82 (>60 ml/min/1.73 sqM) Glucose 90 (74-99) mg/dL Calcium 8.8 (8.4-10.2) mg/dL Phosphorus (2.5-4.5) mg/dL Magnesium 2.0 (1.6-2.3) mg/dL Total Bilirubin 0.4 (0.2-1.3) mg/dL AST 24 (14-36) U/L ALT 12 (4-34) U/L Alkaline Phosphatase 93 (38-126) U/L Total Creatine Kinase (30-135) U/L CK-MB (CK-2) (0.0-2.4) ng/mL CK-MB (CK-2) Rel Index Troponin I (0.000-0.034) ng/mL NT-Pro-B Natriuret Pep 298 pg/mL Total Protein 6.3 (6.3-8.2) g/dL Albumin 3.6 (3.5-5.0) g/dL Amylase 58 (30-110) U/L Lipase 51 (23-300) U/L 04/30/22 04/30/22 04/30/22 Range/Units 18:57 18:57 18:57 WBC (3.8-10.6) k/uL RBC (3.80-5.40) m/uL Hgb (11.4-16.0) gm/dL Hct (34.0-46.0) % MCV (80.0-100.0) fL MCH (25.0-35.0) pg MCHC (31.0-37.0) g/dL RDW (11.5-15.5) % Plt Count (150-450) k/uL MPV Neutrophils % (Manual) % Lymphocytes % (Manual) % Monocytes % (Manual) % Eosinophils % (Manual) % Neutrophils # (Manual) (1.3-7.7) k/uL Lymphocytes # (Manual) (1.0-4.8) k/uL Monocytes # (Manual) (0-1.0) k/uL Eosinophils # (Manual) (0-0.7) k/uL Nucleated RBCs (0-0) /100 WBC Manual Slide Review RBC Morphology PT 10.3 (9.0-12.0) sec INR 0.9 (<1.2) APTT 22.4 (22.0-30.0) sec D-Dimer (<0.60) mg/L FEU Sodium (137-145) mmol/L Potassium (3.5-5.1) mmol/L Chloride (98-107) mmol/L Carbon Dioxide (22-30) mmol/L Anion Gap mmol/L BUN (7-17) mg/dL Creatinine (0.52-1.04) mg/dL Est GFR (CKD-EPI)AfAm (>60 ml/min/1.73 sqM) Est GFR (CKD-EPI)NonAf (>60 ml/min/1.73 sqM) Glucose (74-99) mg/dL Calcium (8.4-10.2) mg/dL Phosphorus (2.5-4.5) mg/dL Magnesium (1.6-2.3) mg/dL Total Bilirubin (0.2-1.3) mg/dL AST (14-36) U/L ALT (4-34) U/L Alkaline Phosphatase (38-126) U/L Total Creatine Kinase 34 (30-135) U/L CK-MB (CK-2) 0.6 (0.0-2.4) ng/mL CK-MB (CK-2) Rel Index 1.8 Troponin I <0.012 (0.000-0.034) ng/mL NT-Pro-B Natriuret Pep pg/mL Total Protein (6.3-8.2) g/dL Albumin (3.5-5.0) g/dL Amylase (30-110) U/L Lipase (23-300) U/L 04/30/22 04/30/22 Range/Units 18:57 18:57 WBC (3.8-10.6) k/uL RBC (3.80-5.40) m/uL Hgb (11.4-16.0) gm/dL Hct (34.0-46.0) % MCV (80.0-100.0) fL MCH (25.0-35.0) pg MCHC (31.0-37.0) g/dL RDW (11.5-15.5) % Plt Count (150-450) k/uL MPV Neutrophils % (Manual) % Lymphocytes % (Manual) % Monocytes % (Manual) % Eosinophils % (Manual) % Neutrophils # (Manual) (1.3-7.7) k/uL Lymphocytes # (Manual) (1.0-4.8) k/uL Monocytes # (Manual) (0-1.0) k/uL Eosinophils # (Manual) (0-0.7) k/uL Nucleated RBCs (0-0) /100 WBC Manual Slide Review RBC Morphology PT (9.0-12.0) sec INR (<1.2) APTT (22.0-30.0) sec D-Dimer 0.76 H (<0.60) mg/L FEU Sodium (137-145) mmol/L Potassium (3.5-5.1) mmol/L Chloride (98-107) mmol/L Carbon Dioxide (22-30) mmol/L Anion Gap mmol/L BUN (7-17) mg/dL Creatinine (0.52-1.04) mg/dL Est GFR (CKD-EPI)AfAm (>60 ml/min/1.73 sqM) Est GFR (CKD-EPI)NonAf (>60 ml/min/1.73 sqM) Glucose (74-99) mg/dL Calcium (8.4-10.2) mg/dL Phosphorus 3.8 (2.5-4.5) mg/dL Magnesium (1.6-2.3) mg/dL Total Bilirubin (0.2-1.3) mg/dL AST (14-36) U/L ALT (4-34) U/L Alkaline Phosphatase (38-126) U/L Total Creatine Kinase (30-135) U/L CK-MB (CK-2) (0.0-2.4) ng/mL CK-MB (CK-2) Rel Index Troponin I (0.000-0.034) ng/mL NT-Pro-B Natriuret Pep pg/mL Total Protein (6.3-8.2) g/dL Albumin (3.5-5.0) g/dL Amylase (30-110) U/L Lipase (23-300) U/L Disposition Clinical Impression: Pain in scapula Disposition: HOME SELF-CARE Condition: Good Instructions (If sedation given, give patient instructions): Shoulder Pain (ED) Additional Instructions: Follow-up with PCP in 1-2 days. Report back to ER with any new or worsening symptoms. Is patient prescribed a controlled substance at d/c from ED?: No Referrals: Inderjit Santos MD [Primary Care Provider] - 1-2 days Time of Disposition: 22:15
[2022-04-30 19:27] VITALS: TEMP 98.2
[2022-04-30 19:36] LABS: ALT 12 U/L (4-34); AST 24 U/L (14-36); African American GFR (CKD) >90 (>60 ml/min/1.73 sqM); Albumin 3.6 g/dL (3.5-5.0); Alkaline Phosphatase 93 U/L (38-126); Amylase 58 U/L (30-110); Anion Gap 4 mmol/L; Blood Urea Nitrogen 18 mg/dL (7-17); Calcium 8.8 mg/dL (8.4-10.2); Carbon Dioxide 26 mmol/L (22-30); Chloride 108 mmol/L (98-107); Glucose 90 mg/dL (74-99); Lipase 51 U/L (23-300); Non-African American GFR(CKD) 82 (>60 ml/min/1.73 sqM); Potassium 3.6 mmol/L (3.5-5.1); Sodium 138 mmol/L (137-145); Total Bilirubin 0.4 mg/dL (0.2-1.3); Total Protein 6.3 g/dL (6.3-8.2)
[2022-04-30 19:39] LABS: INR 0.9 (<1.2); Partial Thromboplastin Time 22.4 sec (22.0-30.0); Prothrombin Time 10.3 sec (9.0-12.0)
[2022-04-30 20:06] LABS: HCT 38.3 % (34.0-46.0); HGB 12.4 gm/dL (11.4-16.0); MCH 30.4 pg (25.0-35.0); MCHC 32.4 g/dL (31.0-37.0); MCV 93.6 fL (80.0-100.0); Mean Platelet Volume 8.3; Platelet Count 205 k/uL (150-450); RBC 4.09 m/uL (3.80-5.40); RDW 13.4 % (11.5-15.5); WBC 6.4 k/uL (3.8-10.6)
--- NOTE | 2022-04-30 20:11 | XR ---
EXAMINATION TYPE: XR chest 2V DATE OF EXAM: 04/30/2022 7:30 PM COMPARISON: Chest radiographs from 06/13/2021. TECHNIQUE: XR chest 2V Frontal and lateral views of the chest. CLINICAL INDICATION:Female, 82 years old with history of PAIN; FINDINGS: Lungs/Pleura: There is flattening of the diaphragm with increased lucency of the lungs. No evidence o f pneumothorax, pleural effusion or focal consolidation. Pulmonary vascularity: Unremarkable. Heart/mediastinum: Cardiomediastinal silhouette is unremarkable. Two lead cardiac conduction device o verlying the left hemithorax with lead tips projecting over the right ventricle and right atrium. Musculoskeletal: No acute osseous pathology. IMPRESSION: 1. No acute cardiopulmonary disease process. 2. COPD changes.
[2022-04-30 20:16] LABS: Creatine Kinase MB 0.6 ng/mL (0.0-2.4)
[2022-04-30 20:51] LABS: Eosinophils # (M) 0.38 k/uL (0-0.7); Lymphocytes # (M) 2.43 k/uL (1.0-4.8); Monocytes # (M) 0.51 k/uL (0-1.0); Neutrophils # (M) 3.07 k/uL (1.3-7.7); Neutrophils % (M) 48 %; Nucleated Red Blood Cells 0 /100 WBC (0-0); Total Cells Counted 100
[2022-04-30 20:53] LABS: RBC Morphology Normal
--- NOTE | 2022-04-30 21:59 | CT ---
EXAMINATION TYPE: CT chest angio for PE CT DLP: 387.1 mGycm, Automated exposure control for dose reduction was used. DATE OF EXAM: 04/30/2022 9:43 PM COMPARISON: Chest radiograph from same day. CT chest 08/16/2020 CLINICAL INDICATION:Female, 82 years old with history of scapular pain, elevated d-dimer; elevated d- dimer and scapular pain TECHNIQUE/CONTRAST: CTA scan of the thorax is performed with IV Contrast, patient injected with 67 mL of Isovue 370, pulm onary embolism protocol. MIP images are created and reviewed. FINDINGS: Pulmonary Artery: There is no evidence for a filling defect within the pulmonary vasculature to sugge st acute pulmonary embolism. The pulmonary artery is of normal size. Lungs/Pleura: Consolidation changes within the right chest measuring 16 mm. Unchanged from 2019. Airway: Large airways are patent. Heart: Heart is within normal limits for size. Cardiac conduction leads remain in the right ventricle and right atrium. Vasculature: No evidence of aortic aneurysm. Atherosclerosis of the arterial vasculature. Mediastinum: No gross evidence of adenopathy. Moderate hiatal hernia. Musculoskeletal: Moderate degenerative disc disease changes are present throughout the thoracolumbar spine. Degeneration changes throughout the spine. The scapulas appear intact without evidence of frac ture. There is mild degeneration changes of the glenohumeral joints bilaterally left greater than rig ht. Soft Tissues: Unremarkable. Lower neck: No significant findings. Upper Abdomen: No significant findings. IMPRESSION: 1. No evidence of pulmonary embolism. 2. Right upper lobe consolidation changes unchanged dating back to 2019 3. Moderate hiatal hernia.
[2022-04-30 22:59] VITALS: BP 162/98; PULSE 57; RESP 16
== END 2022-04-30 22:35 | disposition home or self-care (01) ==
LOC: EC 17:42
DX: M25.512 Pain in left shoulder (principal); K21.9 Gastro-esophageal reflux disease without esophagitis; Z79.83 Long term (current) use of bisphosphonates; E07.9 Disorder of thyroid, unspecified; Z79.899 Other long term (current) drug therapy; Z82.49 Family history of ischemic heart disease and other diseases of the circulatory system; Z88.0 Allergy status to penicillin; Z88.1 Allergy status to other antibiotic agents; Z88.8 Allergy status to other drugs, medicaments and biological substances
CPT/HCPCS: 36415; 93005; 85379; 83880; 80053; 82150; 82550; 82553; 83690; 83735; 84100; 84484; 85025; 85610; 85730; 71046; 71275; 99285; 96360; Q9967

== ENCOUNTER → 2022-05-02 | Outpatient (CLI) | payer MEDICARE ==
--- NOTE | 2022-05-02 16:28 | CT ---
EXAMINATION TYPE: CT abdomen pelvis wo con DATE OF EXAM: 05/02/2022 COMPARISON: 08/15/2020 HISTORY: 82-year-old female N20.0, Kidney stones CT DLP: 554.2 mGycm. Automated exposure control for dose reduction was used. TECHNIQUE: Contiguous axial scanning of the abdomen and pelvis without IV contrast. Coronal and sagit melissa reconstructions performed. FINDINGS: Right atrial and ventricular leads. Heart normal size without pleural effusion. Ectatic descending th oracic aorta 2.8 cm. Some mild patchy groundglass at the periphery of the left base, likely relating to atelectasis. No pleural effusions. There is a moderate size hiatal hernia with one third of the stomach within the lower chest. Noncontrast appearance of the liver, gallbladder, right adrenal gland, right kidney, spleen, and panc reas show no gross abnormality. Parapelvic cysts within the left kidney measuring up to 1.5 cm. No renal calculi or hydronephrosis. Mild nodular thickening of the left adrenal gland measuring up to 1.3 cm was also present back on the CT of 08/15/2020 suggesting a benign adrenal adenoma. Atrophy of the left psoas major probably relating to patient's lumbar spine degenerative changes. Mild atherosclerotic calcifications infrarenal abdominal aorta and iliac arteries without aneurysm. No dilated small bowel, free fluid, or free air. No mesenteric or retroperitoneal lymphadenopathy. Si gmoid diverticulosis. Allowing for prominent metal artifact relating to the patient's bilateral total hip arthroplasties, no pericolonic inflammatory changes identified. Mild pelvic floor relaxation. Uterus not well characterized given the extensive metal artifacts. No o bvious free fluid in the pelvis or pelvic lymphadenopathy. Bladder assessment is very limited as well . Bones: Osteitis pubis. Osteopenia. Bilateral total hip arthroplasties. Patient is status post L4 and L5 laminectomies. Advanced hypertrophic facet arthropathy mid to lower lumbar spine with grade 2 ant erolisthesis L4-L5 and grade 1 anterolisthesis L5-S1. Severe degenerative disc disease throughout the lumbar spine. IMPRESSION: 1. No nephrolithiasis or hydronephrosis. Parapelvic cysts of the left kidney measuring up to 1.5 cm. 2. Redemonstrated moderate sized hiatal hernia with a third of the stomach within the lower chest. 3. Sigmoid diverticulosis. Extensive metal artifacts from the patient's bilateral total hip arthrop lasties limiting assessment; no definite associated acute inflammation is seen. 4. Mild pelvic floor relaxation. Pelvic structures are very limited in assessment due to the extensi ve metal hardware artifact. 5. Advanced degenerative disc disease and severe hypertrophic facet arthropathy of the lumbar spine. Degenerative grade 2 anterolisthesis L4-L5 and grade 1 anterolisthesis L5-S1. Previous L4 and L5 schmidt inectomies.
== END | disposition home or self-care (01) ==
LOC: RADCTMAIN 15:50
PROVIDERS: ATTEND Nurse Practitioner Family
DX: N20.0 Calculus of kidney (principal)
CPT/HCPCS: 74176

== ENCOUNTER → 2022-06-20 | Outpatient (CLI) | payer MEDICARE ==
--- NOTE | 2022-06-23 11:02 | MM ---
Reason for Exam: Screening (asymptomatic). Last mammogram was performed 1 year(s) and 1 month(s) ago. Patient History: Menarche at age 12. First Full-Term at age 23. Postmenopausal. Other cancer. Patient used Estrogen for 5 years. Patient used Progesterone for 5 years. Patient used Hormonal Contraceptives for 5 years. Paternal aunt had breast cancer, age 40. Risk Values: Samra 5 year model risk: 1.3%. NCI Lifetime model risk: 1.7%. Prior Study Comparison: 04/08/2019 Bilateral Screening Mammogram, [facility]. 05/07/2020 Bilateral Screening Mammogram, [facility]. 06/10/2021 Bilateral Screening Mammogram, [facility]. Tissue Density: There are scattered fibroglandular densities. Findings: Analyzed By CAD. Pacemaker overlies the left chest. Some chronic nodularities in the posterior right mediolateral oblique view, stable from comparison. No suspicious groups of microcalcifications, spiculated or lobular masses, architectural distortion or other secondary signs of malignancy are mammographically apparent. Overall Assessment: Benign, BI-RAD 2 Management: Screening Mammogram of both breasts in 1 year. A negative mammogram report should not preclude additional follow up of suspicious palpable abnormalities. Patient should continue monthly self breast exam. A clinical breast exam by your physician is recommended on an annual basis and results should be correlated with mammographic findings. Electronically signed and approved by: Melvin Wallis D.O. Radiologis
== END | disposition home or self-care (01) ==
LOC: RADMAMWWP 10:14
PROVIDERS: ATTEND Family Medicine
DX: Z12.31 Encounter for screening mammogram for malignant neoplasm of breast (principal)
CPT/HCPCS: 77063; 77067

== ENCOUNTER → 2023-04-15 | Outpatient (CLI) | payer MEDICARE ==
[2023-04-15 13:54] LABS: HCT 40.3 % (37.2-46.3); HGB 12.7 g/dL (12.0-15.0); MCH 29.5 pg (27.0-32.0); MCHC 31.5 g/dL (32.0-37.0); MCV 93.7 fL (80.0-97.0); Mean Platelet Volume 10.7 fL (9.5-12.2); NRBC Per 100 WBC 0 /100 WBCS (0.0-0.0); Platelet Count 202 X 10*3/uL (140-440); RDW 13.3 % (11.5-14.5); WBC 5.25 X 10*3/uL (4.50-10.00)
[2023-04-15 14:51] LABS: African American GFR (CKD) 82.4 (60.0-200.0); Blood Urea Nitrogen 18.6 mg/dL (9.0-27.0); Carbon Dioxide 26.7 mmol/L (20.0-27.5); Non-African American GFR(CKD) 71.1 (60.0-200.0); Potassium 5.2 mmol/L (3.5-5.5)
== END | disposition home or self-care (01) ==
LOC: LABPAT 07:48
PROVIDERS: ATTEND Internal Medicine
DX: Z01.812 Encounter for preprocedural laboratory examination (principal); I49.5 Sick sinus syndrome
CPT/HCPCS: 36415; 80051; 82565; 84520; 85027

== ENCOUNTER 2023-04-21 11:53 | Day surgery (SDC) | payer MEDICARE ==
[2023-04-17 13:51] VITALS: BMI 27.4
[~2023-04-21 11:53] MED LIST changes: -ACETAMINOPHEN TAB 500 MG TAB PO ONE; -CLINDAMYCIN 900 MG in DEXTROSE 5% IN WATER 50 ML IVPB ONE; -DEXAMETHASONE SOD PHOSPHATE 10 MG/ML 1 ML VIAL IV ONE; -HYDROmorphone 0.5 MG/0.5 ML SYRINGE IVP PRN; -MELOXICAM 7.5 MG TAB PO ONE; -MORPHINE SULFATE 2 MG/ML SYRINGE IV PRN; -ONDANSETRON 4 MG/2 ML VIAL IVP ONE; -ONDANSETRON 4 MG/2 ML VIAL IVP PRN; -ROPIVACAINE 246.25 MG, EPINEPHrine 0.5 MG, KETOROLAC 30 MG, cloNIDine HCL/PF 80 MCG, WA... MISCELLANE ONE; +SODIUM CHLORIDE 0.9% 1,000 ML IV SCH; -TRANEXAMIC ACID 1,000 MG in SODIUM CHLORIDE 0.9% 50 ML IVPB ONE
[2023-04-21] MEDS ORDERED: SODIUM CHLORIDE 0.9% 1,000 ML IV ONE (12:08)
[2023-04-21 12:31] VITALS: RESP 16; TEMP 97.5
[2023-04-21] MEDS: CLINDAMYCIN 900 MG in DEXTROSE 5% IN WATER 50 ML IVPB PRN ×4 (13:13→13:47)
[2023-04-21] MEDS: CLINDAMYCIN 600 MG in SODIUM CHLORIDE 0.9% 250 ML IRRIGATION PRN ×2 (13:13→13:47)
[2023-04-21] MEDS ORDERED: fentaNYL (PF) 50 MCG/ML 2 ML AMP IV ONE (13:42)
[2023-04-21] MEDS ORDERED: MIDAZOLAM 2 MG/2 ML VIAL IV ONE (13:42)
[2023-04-21] MEDS ORDERED: LIDOCAINE 1% INJ 10MG/ML (20 ML MDV) SQ ONE (13:51)
[2023-04-21] MEDS ORDERED: NAPROXEN SODIUM 220 MG PO PRN (14:46)
[2023-04-21] MEDS ORDERED: ACETAMINOPHEN TAB 325 MG TAB PO PRN (14:47)
--- NOTE | 2023-04-21 14:57 | P.PCN ---
Description of Procedure: CARDIOLOGY PROCEDURE NOTE Clinical Business Analyst: Dr. Wesly Oconnor Procedure performed: Dual chamber permanent pacemaker generator change Site: Left subclavian Indications: Sick Sinus Syndrome, FRANKI Complications: None Blood Loss: Minimal Description of Procedure: After the risks, benefits, and alternatives of the above-mentioned procedure was explained in detail with the patient, informed consent was obtained. The patient was taken to the cardiac catheterization suite where the left subclavian area was sterily prepped and draped in the usual fashion. Patient was given IV Versed and fentanyl for sedation. The skin over the existing pulse generator was infiltrated with lidocaine. An incision was made in the skin and was deepened until the pectoral fascia was exposed. Hemostasis was obtained. The existing pulse generator was pulled out of the pocket. The leads were disconnected and were checked for thresholds. The existing leads were then inserted into the appropriate position into the new generator. They were then secured with the setscrew provided. The leads and generator were inserted into the pocket with the leads posterior. The subcutaneous tissue was approximated utilizing #2.0 and 3.0 vicryl in an interrupted stitch fashion. The dermal layer was approximated utilizing #4.0 vicryl. The area was cleansed with sterile saline and dried. A sterile 4x4 dressing was applied and the patient was transferred to the post catheterization holding area in stable and satisfactory condition. The patient tolerated the procedure well. Generator Data Milk Treater: [employer] Brand: [id number] [place] XT DR MRI Model #: [id number] Serial#: [id number] Right Atrial Bipolar Lead Data: Type: Active fixation lead Milk Treater: Guidant Model#: 4086 Serial Number: [id number] Right Ventricular Bipolar Lead Data: Type: Active fixation lead Milk Treater: Guidant Model #: [id number] Serial #: [id number] Stimulation Thresholds: Right atrial bipolar lead pacing and sensing thresholds Voltage: 1.0 V Impedance: 418 ohms P-wave sensin.1 mV Right Ventricular bipolar lead pacing and sensing thresholds Pulse Width: 0.4ms Voltage: 1.0 volts Impedance: 418 ohms R-wave sensin.8 mV Parameter Setting: Pacing mode is AAIR<=>DDDR Lower rate 60 bpm Upper rate 130 bpm Impressions: 1. Successful generator change of a dual chamber permanent pacemaker in the left pectoral site. Plan: 1. Routine post procedure care will be instituted as well as outpatient follow- up surveillance.
[2023-04-21 16:34] VITALS: BP 148/71; PULSE 71
[2023-04-21] MEDS ORDERED: CALCIUM CARBONATE PO SCH (21:00)
[2023-04-21] MEDS ORDERED: [UNRECOGNIZED DRUG - OTHER] PO SCH (21:00)
[2023-04-21] MEDS ORDERED: VITAMIN D3 PO SCH (21:00)
[2023-04-22] MEDS ORDERED: PANTOPRAZOLE 40 MG TABLET PO SCH (09:00)
[2023-04-22] MEDS ORDERED: FLUDROCORTISONE 0.1 MG TAB PO SCH (09:00)
== END 2023-04-21 16:34 | disposition home or self-care (01) ==
LOC: CATHEP 11:53
PROVIDERS: ATTEND Internal Medicine
DX: Z45.010 Encounter for checking and testing of cardiac pacemaker pulse generator [battery] (principal); I49.5 Sick sinus syndrome; I95.1 Orthostatic hypotension; I10 Essential (primary) hypertension; F17.210 Nicotine dependence, cigarettes, uncomplicated; Z88.0 Allergy status to penicillin; Z88.1 Allergy status to other antibiotic agents; Z88.8 Allergy status to other drugs, medicaments and biological substances; Z79.899 Other long term (current) drug therapy
CPT/HCPCS: 33228; C1785; J2250; J2001; J3010

== ENCOUNTER → 2023-05-13 | Outpatient (CLI) | payer MEDICARE ==
--- NOTE | 2023-05-13 15:39 | BD ---
EXAMINATION TYPE: Axial Bone Density DATE OF EXAM: 05/13/2023 CLINICAL HISTORY: 83 years old Female. ICD-10 CODE: Z78.0 ASYMPTOMATIC MENOPAUSAL STATE Height: Weight: FRAX RISK QUESTIONS: History of Fracture in Adulthood: yes RISK FACTORS HISTORY OF: Hip Fracture surgery to both hips.....1989 Surgery to Spine laminectomy, 2020, 2 yrs ago Postmenopausal woman: 49, hormones in the past for about 3 yrs Lost more than 2 inches in height since high school: yes Frequent falls: unsteady Hyperparathyroidism: no Adrenal Insufficiency: no MEDICATIONS: Additional Medications: bp meds, heart meds, zoloft, aleve, calcium, eye drops, , Additional History: hypertension, heart condition, anxiety calcium EXAM MEASUREMENTS: Bone mineral densitometry was performed using the Edmodo System. Laminectomy of lumbar spine...2020..spine not scanned both hips replaced....hips not scanned and no frax Bone mineral density about the L Wrist (g/cm2): 0.381 T Score values are as follows: -----Dist. R+U: -3.3 -----Prox. R+U: -3.9 -----Radius total: -4.8 Z Score values are as follows: -----Dist. R+U: -0.2 -----Prox. R+U: -0.8 -----Radius total: -1.7 Bone mineral density has: Decreased -5.5% since study of: 06.10.2021 FRAX%s: no frax....hips not scanned, both have been replaced IMPRESSION: Osteoporosis (T Score less than -2.5). There is increased fracture risk and therapy is usually indicated based on age. Re-Screen 1-2 years. NOTE: T-SCORE=SD OF THE YOUNG ADULT MEAN.
== END | disposition home or self-care (01) ==
LOC: RADBDWWP 10:23
PROVIDERS: ATTEND Family Medicine
DX: M81.0 Age-related osteoporosis without current pathological fracture (principal); Z78.0 Asymptomatic menopausal state
CPT/HCPCS: 77080

== ENCOUNTER → 2023-06-22 | Outpatient (CLI) | payer MEDICARE ==
--- NOTE | 2023-06-23 09:00 | MM ---
Reason for Exam: Screening (asymptomatic). Last screening mammogram was performed 12 month(s) ago. Patient History: Menarche at age 12. First Full-Term at age 23. Postmenopausal. Other cancer. Patient used Estrogen for 5 years. Patient used Progesterone for 5 years. Patient used Hormonal Contraceptives for 5 years. Paternal aunt had breast cancer, age 40. Risk Values: Samra 5 year model risk: 1.3%. NCI Lifetime model risk: 1.4%. Prior Study Comparison: 05/07/2020 Bilateral Screening Mammogram, [facility]. 06/10/2021 Bilateral Screening Mammogram, [facility]. 06/20/2022 Bilateral MG 3D screening mammo w/cad, [facility]. Tissue Density: The breast tissue is heterogeneously dense. This may lower the sensitivity of mammography. Findings: Analyzed By CAD. There is no suspicious group of microcalcifications or new suspicious mass in either breast. Overall Assessment: Negative, BI-RAD 1 Management: Screening Mammogram of both breasts in 1 year. . Patient should continue monthly self-breast exams. A clinical breast exam by your physician is recommended on an annual basis. This exam should not preclude additional follow-up of suspicious palpable abnormalities. Note on Samra scores and lifetime risk: 1. A Samra score greater than 3% is considered moderate risk. If this is the case, consider specialist referral to assess eligibility for a risk reducing agent. 2. If overall lifetime risk for the development of breast cancer is 20% or higher, the patient may qualify for future screening with alternating mammogram and breast MRI. Electronically signed and approved by: Bryant Welch M.D. Radiologis
== END | disposition home or self-care (01) ==
LOC: RADMAMWWP 15:11
PROVIDERS: ATTEND Family Medicine
DX: Z12.31 Encounter for screening mammogram for malignant neoplasm of breast (principal); Z78.0 Asymptomatic menopausal state; Z80.3 Family history of malignant neoplasm of breast
CPT/HCPCS: 77063; 77067

== ENCOUNTER → 2024-04-28 | Outpatient (CLI) | payer MEDICARE ==
[2024-04-28 11:07] LABS: T4, Free (Free Thyroxine) 1.19 ng/dL (0.80-1.80)
== END | disposition home or self-care (01) ==
LOC: LABWHC1 07:39
PROVIDERS: ATTEND Psychiatry & Neurology Neurology
DX: R41.3 Other amnesia (principal); R53.83 Other fatigue; R26.89 Other abnormalities of gait and mobility
CPT/HCPCS: 36415; 82306; 82607; 84207; 84439; 84443

== ENCOUNTER → 2024-09-22 | Outpatient (CLI) | payer MEDICARE ==
--- NOTE | 2024-09-22 08:10 | MM ---
Reason for Exam: Screening (asymptomatic). Last mammogram was performed 1 year(s) and 3 month(s) ago. Patient History: Menarche at age 12. First Full-Term at age 23. Postmenopausal. Other cancer. Patient used Estrogen for 5 years. Patient used Progesterone for 5 years. Patient used Hormonal Contraceptives for 5 years. Paternal aunt had breast cancer, age 40. Risk Values: Samra 5 year model risk: 1.1%. NCI Lifetime model risk: 1.1%. Prior Study Comparison: 03/30/2017 Bilateral Screening Mammogram, [facility]. 04/02/2018 Bilateral Screening Mammogram, [facility]. 04/08/2019 Bilateral Screening Mammogram, [facility]. 05/07/2020 Bilateral Screening Mammogram, [facility]. 06/10/2021 Bilateral Screening Mammogram, [facility]. 06/20/2022 Bilateral MG 3D screening mammo w/cad, [facility]. 06/22/2023 Bilateral MG 3D screening mammo w/cad, [facility]. Tissue Density: There are scattered areas of fibroglandular density. Findings: Analyzed By CAD. There is a nodule in the posterior lower inner left breast approximately 7 cm from the nipple. Measures approximately 8 mm. No suspicious grouped calcifications. No architectural distortion. Cardiac device partially obscures portions of the upper left breast and axilla. Overall Assessment: Incomplete: need additional imaging evaluation, BI-RAD 0 Management: Diagnostic Mammogram of the left breast. . Patient should continue monthly self-breast exams. A clinical breast exam by your physician is recommended on an annual basis. This exam should not preclude additional follow-up of suspicious palpable abnormalities. Note on Samra scores and lifetime risk: 1. A Samra score greater than 3% is considered moderate risk. If this is the case, consider specialist referral to assess eligibility for a risk reducing agent. 2. If overall lifetime risk for the development of breast cancer is 20% or higher, the patient may qualify for future screening with alternating mammogram and breast MRI. [facility], , 09/22/2024 8:07 AM. Electronically signed and approved by: Magan Poole M.D. Radiologis
== END | disposition home or self-care (01) ==
LOC: RADMAMWWP 07:13
PROVIDERS: ATTEND Family Medicine
DX: Z12.31 Encounter for screening mammogram for malignant neoplasm of breast (principal); Z78.0 Asymptomatic menopausal state; Z80.3 Family history of malignant neoplasm of breast; R92.323 Mammographic fibroglandular density, bilateral breasts; N63.24 Unspecified lump in the left breast, lower inner quadrant
CPT/HCPCS: 77063; 77067

== ENCOUNTER → 2024-09-27 | Outpatient (CLI) | payer MEDICARE ==
--- NOTE | 2024-09-27 08:56 | MM ---
Reason for Exam: Additional evaluation requested from abnormal screening. Last screening mammogram was performed less than 1 month ago. Patient History: Menarche at age 12. First Full-Term at age 23. Postmenopausal. Other cancer. Patient used Estrogen for 5 years. Patient used Progesterone for 5 years. Patient used Hormonal Contraceptives for 5 years. Paternal aunt had breast cancer, age 40. Risk Values: Samra 5 year model risk: 1.1%. NCI Lifetime model risk: 1.1%. Prior Study Comparison: 06/20/2022 Bilateral MG 3D screening mammo w/cad, [facility]. 06/22/2023 Bilateral MG 3D screening mammo w/cad, [facility]. 09/22/2024 Bilateral MG 3D screening mammo w/cad, [facility]. Tissue Density: Left: There are scattered areas of fibroglandular density. Findings: Analyzed By CAD. Appears stable. The rounded density within the lower aspect of the left breast is again evident. Three-D reconstructed images this is demonstrated at the skin surface is also marked as a normal during this examination. No suspicious groups of microcalcifications, spiculated or lobular masses, architectural distortion or other secondary signs of malignancy are mammographically apparent. Overall Assessment: Negative, BI-RAD 1 Management: Screening Mammogram of both breasts in 1 year. A negative mammogram report should not preclude additional follow up of suspicious palpable abnormalities. Patient should continue monthly self breast exam. A clinical breast exam by your physician is recommended on an annual basis and results should be correlated with mammographic findings. Note on Samra scores and lifetime risk: 1. A Samra score greater than 3% is considered moderate risk. If this is the case, consider specialist referral to assess eligibility for a risk reducing agent. 2. If overall lifetime risk for the development of breast cancer is 20% or higher, the patient may qualify for future screening with alternating mammogram and breast MRI. [facility], , 09/27/2024 8:53 AM. Electronically signed and approved by: Melvin Wallis D.O. Radiologis
== END | disposition home or self-care (01) ==
LOC: RADMAMWWP 08:31
PROVIDERS: ATTEND Family Medicine
DX: R92.8 Other abnormal and inconclusive findings on diagnostic imaging of breast (principal); R92.323 Mammographic fibroglandular density, bilateral breasts; Z78.0 Asymptomatic menopausal state; Z80.3 Family history of malignant neoplasm of breast
CPT/HCPCS: 77065; G0279; 77061

== ENCOUNTER 2024-10-24 09:57 | Emergency (ER) | payer MEDICARE ==
[2024-10-24 10:03] VITALS: RESP 20; TEMP 97.5
--- NOTE | 2024-10-24 10:56 | ED ---
Abdominal Pain HPI - General Chief Complaint: Abdominal Pain Stated Complaint: abd pain R side Time Seen by Provider: 10/24/24 10:55 Source: patient, RN notes reviewed Mode of arrival: wheelchair Limitations: no limitations - History of Present Illness Initial Comments: 84-year-old female presenting to the ER with chief complaint of right upper quadrant abdominal pain x 1 hour. Describes the pain a sharp sensation that radiated to her back. States this began at approximately 9 AM this morning and has since resolved. States she is currently asymptomatic. Denies nausea, vomiting, diarrhea, fevers, chills, chest pain, shortness of breath. Denies history of abdominal surgeries. - Related Data Home Medications Medication Instructions Recorded Confirmed Pantoprazole [Protonix] 40 mg PO DAILY 08/09/18 04/21/23 Naproxen Sodium [Aleve] 440 mg PO BID PRN 11/17/18 04/21/23 Calcium Carbonate/Vitamin D3 1 tab PO HS 04/30/22 04/17/23 [Calcium 500-Vit D3 15 Mcg (600 Iu)] Fludrocortisone [Florinef] 0.1 mg PO QAM 04/30/22 04/21/23 Allergies Allergy/AdvReac Type Severity Reaction Status Date / Time amoxicillin [From Augmentin] Allergy Unknown Verified 10/24/24 10:03 cephalexin Allergy Unknown Verified 10/24/24 10:03 clavulanic acid Allergy Unknown Verified 10/24/24 10:03 [From Augmentin] Review of Systems ROS Statement: Those systems with pertinent positive or pertinent negative responses have been documented in the HPI. ROS Other: All systems not noted in ROS Statement are negative. Past Medical History Past Medical History: Eye Disorder, GERD/Reflux, Osteoarthritis (OA), Thyroid Disorder Additional Past Medical History / Comment(s): hiatal hernia, sodium imbalance Last Myocardial Infarction Date:: unknown History of Any Multi-Drug Resistant Organisms: None Reported Past Surgical History: Joint Replacement, Orthopedic Surgery, Pacemaker Additional Past Surgical History / Comment(s): alice hip replacements, rt hip revision, alice foot surgeries, cataract surg left knee replacement 11/23/18 right knee replacement, laminectomu Past Anesthesia/Blood Transfusion Reactions: Motion Sickness Type of Cardiac Device: Permanent Pacemaker Device Placement Date:: 12/27/11 Past Psychological History: No Psychological Hx Reported Smoking Status: Former smoker Past Alcohol Use History: Rare Past Drug Use History: None Reported - Past Family History Father Family Medical History: Myocardial Infarction (ID) Mother Family Medical History: No Reported History General Exam Limitations: no limitations General appearance: alert, in no apparent distress Head exam: Present: atraumatic, normocephalic, normal inspection Respiratory exam: Present: normal lung sounds bilaterally. Absent: respiratory distress, wheezes, rales, rhonchi, stridor Cardiovascular Exam: Present: regular rate, normal rhythm, normal heart sounds. Absent: systolic murmur, diastolic murmur, rubs, gallop, clicks GI/Abdominal exam: Present: soft, normal bowel sounds. Absent: distended, tenderness, guarding, rebound, rigid Back exam: Absent: CVA tenderness (R), CVA tenderness (L) Neurological exam: Present: alert, oriented X3 Psychiatric exam: Present: normal affect, normal mood Skin exam: Present: warm, dry, intact, normal color. Absent: rash Course Vital Signs 10/24/24 10:00 Temperature 97.5 F L Pulse Rate 88 Respiratory 20 Rate Blood Pressure 153/87 O2 Sat by Pulse 98 Oximetry Medical Decision Making - Medical Decision Making Was pt. sent in by a medical professional or institution (, PA, DEMOLITION SPECIALIST, urgent care, hospital, or skilled nursing...) When possible be specific @ -No Did you speak to anyone other than the patient for history (EMS, parent, family, police, friend...)? What history was obtained from this source @ -No Did you review nursing and triage notes (agree or disagree)? Why? @ -I reviewed and agree with nursing and triage notes Were old charts reviewed (outside hosp., previous admission, EMS record, old EKG, old radiological studies, urgent care reports/EKG's, skilled nursing records)? Report findings @ -No old charts were reviewed Differential Diagnosis (chest pain, altered mental status, abdominal pain women, abdominal pain men, vaginal bleeding, weakness, fever, dyspnea, syncope, headache, dizziness, GI bleed, back pain, seizure, CVA, palpatations, mental h ealth, musculoskeletal)? @ -Differential Abdominal Pain Women: Appendicitis, Cholecystitis, diverticulosis, ischemic bowel, pancreatitis, hepatitis, UTI, gastroenteritis, AAA, incarcerated hernia, bowel obstruction, constipation, inflammatory bowel, hepatitis, peptic ulcer disease, splenic infarction, perforated viscus, vulvitis, ovarian torsion, PID, kidney stone, placenta abruption, this is not meant to be an all-inclusive list EKG interpreted by me (3pts min.). @ -None X-rays interpreted by me (1pt min.). @ -None done CT interpreted by me (1pt min.). @ -None done U/S interpreted by me (1pt. min.). @ -None done What testing was considered but not performed or refused? (CT, X-rays, U/S, l abs)? Why? @ -Testing considered but deferred as patient is asymptomatic at time of evaluation What meds were considered but not given or refused? Why? @ -None Did you discuss the management of the patient with other professionals (professionals i.e. , PA, DEMOLITION SPECIALIST, lab, RT, psych nurse, social research assistant, contact center director, teacher, resident medical officer, correctional counselor/case manager)? Give summary @ -No Was smoking cessation discussed for >3mins.? @ -No Was critical care preformed (if so, how long)? @ -No Were there social determinants of health that impacted care today? How? (Homelessness, low income, unemployed, alcoholism, drug addiction, transportation, low edu. Level, literacy, decrease access to med. care, snf, rehab)? @ -No Was there de-escalation of care discussed even if they declined (Discuss DNR or withdrawal of care, Hospice)? DNR status @ -No What co-morbidities impacted this encounter? (DM, HTN, Smoking, COPD, CAD, Cancer, CVA, ARF, Chemo, Hep., AIDS, mental health diagnosis, sleep apnea, morbid obesity)? @ -None Was patient admitted / discharged? Hospital course, mention meds given and route, prescriptions, significant lab abnormalities, going to OR and other pertinent info. @ -Discharge. This is a 84-year-old female presenting for right upper quadrant abdominal pain x 1 hour. At time evaluation, patient states symptoms have resolved and is asymptomatic. Vital signs are within acceptable limits. Abdomen is soft and nontender to palpation. Lab work and urinalysis unremarkable. Results discussed with patient. Appropriate return precautions and follow-up care discussed and patient is agreeable to plan. Case was discussed with my ED attending Dr. Coyle. Undiagnosed new problem with uncertain prognosis? @ -No Drug Therapy requiring intensive monitoring for toxicity (Heparin, Nitro, Ins ulin, Cardizem)? @ -No Were any procedures done? @ -No Diagnosis/symptom? @ -Abdominal pain Acute, or Chronic, or Acute on Chronic? @ -Acute Uncomplicated (without systemic symptoms) or Complicated (systemic symptoms)? @ -Uncomplicated Side effects of treatment? @ -No Exacerbation, Progression, or Severe Exacerbation? @ -No Poses a threat to life or bodily function? How? (Chest pain, USA, ID, pneumonia, PE, COPD, DKA, ARF, appy, cholecystitis, CVA, Diverticulitis, Homicidal, Suicidal, threat to staff... and all critical care pts) @ -No - Lab Data Result diagrams: 10/24/24 10:58 10/24/24 10:58 Lab Results 10/24/24 10/24/24 10/24/24 Range/Units 10:58 10:58 10:58 WBC 7.1 (3.8-10.6) k/uL RBC 4.22 (3.80-5.40) m/uL Hgb 12.3 (11.4-16.0) gm/dL Hct 38.7 (34.0-46.0) % MCV 91.7 (80.0-100.0) fL MCH 29.2 (25.0-35.0) pg MCHC 31.8 (31.0-37.0) g/dL RDW 12.9 (11.5-15.5) % Plt Count 199 (150-450) k/uL MPV 7.5 Neutrophils % 63 % Lymphocytes % 24 % Monocytes % 6 % Eosinophils % 3 % Basophils % 0 % Neutrophils # 4.5 (1.3-7.7) k/uL Lymphocytes # 1.7 (1.0-4.8) k/uL Monocytes # 0.4 (0-1.0) k/uL Eosinophils # 0.2 (0-0.7) k/uL Basophils # 0.0 (0-0.2) k/uL Sodium 139 (137-145) mmol/L Potassium 4.2 (3.5-5.1) mmol/L Chloride 108 H (98-107) mmol/L Carbon Dioxide 21 L (22-30) mmol/L Anion Gap 10 mmol/L BUN 16 (7-17) mg/dL Creatinine 0.80 (0.52-1.04) mg/dL Est GFR (CKD-EPI)AfAm 78 (>60 ml/min/1.73 sqM) Est GFR (CKD-EPI)NonAf 68 (>60 ml/min/1.73 sqM) Glucose 83 (74-99) mg/dL Plasma Lactic Acid David 1.3 (0.7-2.0) mmol/L Calcium 9.3 (8.4-10.2) mg/dL Total Bilirubin 0.7 (0.2-1.3) mg/dL AST 30 (14-36) U/L ALT 18 (4-34) U/L Alkaline Phosphatase 101 (38-126) U/L Total Protein 6.7 (6.3-8.2) g/dL Albumin 4.2 (3.5-5.0) g/dL Lipase 53 (23-300) U/L Urine Color Urine Appearance (Clear) Urine pH (5.0-8.0) Ur Specific [place] (1.001-1.035) Urine Protein (Negative) Urine Glucose (UA) (Negative) Urine Ketones (Negative) Urine Blood (Negative) Urine Nitrite (Negative) Urine Bilirubin (Negative) Urine Urobilinogen (<2.0) mg/dL Ur Leukocyte Esterase (Negative) Urine RBC (0-5) /hpf Urine WBC (0-5) /hpf Ur Squamous Epith Cells (0-4) /hpf Urine Mucus (None) /hpf 10/24/24 Range/Units 11:46 WBC (3.8-10.6) k/uL RBC (3.80-5.40) m/uL Hgb (11.4-16.0) gm/dL Hct (34.0-46.0) % MCV (80.0-100.0) fL MCH (25.0-35.0) pg MCHC (31.0-37.0) g/dL RDW (11.5-15.5) % Plt Count (150-450) k/uL MPV Neutrophils % % Lymphocytes % % Monocytes % % Eosinophils % % Basophils % % Neutrophils # (1.3-7.7) k/uL Lymphocytes # (1.0-4.8) k/uL Monocytes # (0-1.0) k/uL Eosinophils # (0-0.7) k/uL Basophils # (0-0.2) k/uL Sodium (137-145) mmol/L Potassium (3.5-5.1) mmol/L Chloride (98-107) mmol/L Carbon Dioxide (22-30) mmol/L Anion Gap mmol/L BUN (7-17) mg/dL Creatinine (0.52-1.04) mg/dL Est GFR (CKD-EPI)AfAm (>60 ml/min/1.73 sqM) Est GFR (CKD-EPI)NonAf (>60 ml/min/1.73 sqM) Glucose (74-99) mg/dL Plasma Lactic Acid David (0.7-2.0) mmol/L Calcium (8.4-10.2) mg/dL Total Bilirubin (0.2-1.3) mg/dL AST (14-36) U/L ALT (4-34) U/L Alkaline Phosphatase (38-126) U/L Total Protein (6.3-8.2) g/dL Albumin (3.5-5.0) g/dL Lipase (23-300) U/L Urine Color Colorless Urine Appearance Clear (Clear) Urine pH 7.5 (5.0-8.0) Ur Specific [place] 1.006 (1.001-1.035) Urine Protein Negative (Negative) Urine Glucose (UA) Negative (Negative) Urine Ketones Negative (Negative) Urine Blood Negative (Negative) Urine Nitrite Negative (Negative) Urine Bilirubin Negative (Negative) Urine Urobilinogen <2.0 (<2.0) mg/dL Ur Leukocyte Esterase Small H (Negative) Urine RBC 1 (0-5) /hpf Urine WBC <1 (0-5) /hpf Ur Squamous Epith Cells <1 (0-4) /hpf Urine Mucus Rare H (None) /hpf - EKG Data -: EKG Interpreted by Me EKG Comments: EKG reveals electronic atrial paced rhythm, no acute ST changes. Ventricular rate 61 bpm, UT interval 244, QRS duration 114, QT/QTc 426/428 Disposition Clinical Impression: Abdominal pain Disposition: HOME SELF-CARE Condition: Stable Instructions (If sedation given, give patient instructions): Abdominal Pain (ED) Additional Instructions: Please return to the Emergency Department if symptoms worsen or any other concerns. Is patient prescribed a controlled substance at d/c from ED?: No Referrals: Inderjit Santos MD [Primary Care Provider] - 1-2 days Time of Disposition: 13:05
[2024-10-24 11:06] LABS: Basophils % (A) 0 %; Eosinophils # (A) 0.2 k/uL (0-0.7); Eosinophils % (A) 3 %; HCT 38.7 % (34.0-46.0); HGB 12.3 gm/dL (11.4-16.0); Lymphocytes # (A) 1.7 k/uL (1.0-4.8); Lymphocytes % (A) 24 %; MCH 29.2 pg (25.0-35.0); MCHC 31.8 g/dL (31.0-37.0); MCV 91.7 fL (80.0-100.0); Mean Platelet Volume 7.5; Monocytes # (A) 0.4 k/uL (0-1.0); Monocytes % (A) 6 %; Neutrophils # (A) 4.5 k/uL (1.3-7.7); Neutrophils % (A) 63 %; Platelet Count 199 k/uL (150-450); RBC 4.22 m/uL (3.80-5.40); RDW 12.9 % (11.5-15.5); WBC 7.1 k/uL (3.8-10.6)
[2024-10-24 11:28] LABS: ALT 18 U/L (4-34); AST 30 U/L (14-36); African American GFR (CKD) 78 (>60 ml/min/1.73 sqM); Albumin 4.2 g/dL (3.5-5.0); Alkaline Phosphatase 101 U/L (38-126); Anion Gap 10 mmol/L; Blood Urea Nitrogen 16 mg/dL (7-17); Calcium 9.3 mg/dL (8.4-10.2); Carbon Dioxide 21 mmol/L (22-30); Chloride 108 mmol/L (98-107); Glucose 83 mg/dL (74-99); Lipase 53 U/L (23-300); Non-African American GFR(CKD) 68 (>60 ml/min/1.73 sqM); Potassium 4.2 mmol/L (3.5-5.1); Sodium 139 mmol/L (137-145); Total Bilirubin 0.7 mg/dL (0.2-1.3); Total Protein 6.7 g/dL (6.3-8.2)
[2024-10-24 12:32] LABS: Appearance,Urine Clear (Clear); Bilirubin,Urine Negative (Negative); Blood,Urine Negative (Negative); Color,Urine Colorless; Glucose,Urine (UA) Negative (Negative); Ketones,Urine Negative (Negative); Leukocyte Esterase,Urine Small (Negative); Mucus,Urine Rare /hpf; Nitrite,Urine Negative (Negative); PH, Urine 7.5 (5.0-8.0); Protein,Urine Negative (Negative); RBC,Urine 1 /hpf (0-5); Specific Gravity,Urine 1.006 (1.001-1.035); Squamous Epithelial Cell,Urine <1 /hpf (0-4); Urobilinogen,Urine <2.0 mg/dL (<2.0); WBC,Urine <1 /hpf (0-5)
[2024-10-24 13:21] VITALS: BP 148/90; PULSE 73
== END 2024-10-24 13:20 | disposition home or self-care (01) ==
LOC: EC 09:57
DX: R10.11 Right upper quadrant pain (principal); Z88.0 Allergy status to penicillin; Z88.1 Allergy status to other antibiotic agents; Z88.8 Allergy status to other drugs, medicaments and biological substances; Z87.891 Personal history of nicotine dependence
CPT/HCPCS: 36415; 80053; 81001; 83605; 83690; 85025; 93005; 99284

== ENCOUNTER → 2024-12-01 | Outpatient (CLI) | payer MEDICARE ==
--- NOTE | 2024-12-01 07:53 | CT ---
EXAMINATION TYPE: CT brain wo con DATE OF EXAM: 12/01/2024 7:42 AM COMPARISON: 05/06/2016. CLINICAL INDICATION: Female, 84 years old with history of R41.3 OTHER AMNESIA, memory loss TECHNIQUE: Brain: Axial CT images of the brain were obtained with coronal and sagittal reformats created and rev iewed. Contrast used: None. Oral contrast used: None. CT DLP: 995.5 mGycm, Automated exposure control for dose reduction was used. FINDINGS: Brain: Extra-axial spaces: No abnormal extra-axial fluid collections. Ventricular system: Dilatation in proportion to cerebral atrophy. Cerebral parenchyma: No acute intraparenchymal hemorrhage or mass effect. The hernandez-white junction is well differentiated. Scattered hypoattenuating areas are seen within the white matter. Cerebellum: Unremarkable. Mass effect: No evidence of midline shift. Intracranial vasculature: Atherosclerotic calcifications of the intracranial vessels. Soft tissues: Normal. Calvarium/osseous structures: No depressed skull fracture. Paranasal sinuses and mastoid air cells: Mild scattered paranasal sinus disease. Visualized orbits: Bilateral aphakia IMPRESSION: 1. No acute intracranial process. 2. Nonspecific white matter changes, likely secondary to chronic small vessel ischemic disease. [facility], , 12/01/2024 7:51 AM
== END | disposition home or self-care (01) ==
LOC: RADCTMAIN 07:12
PROVIDERS: ATTEND Psychiatry & Neurology Neurology
DX: R41.3 Other amnesia (principal); R90.82 White matter disease, unspecified
CPT/HCPCS: 70450

== ENCOUNTER 2025-04-14 20:29 | Emergency (ER) | payer MEDICARE ==
[2025-04-14 20:37] VITALS: RESP 18; TEMP 97.6
[2025-04-14 21:26] LABS: Basophils # (A) 0.05 10*3/uL (0.00-0.10); Basophils % (A) 0.9 %; Eosinophils # (A) 0.23 10*3/uL (0.04-0.35); Eosinophils % (A) 4.2 %; HCT 33.9 % (37.2-46.3); HGB 11.2 g/dL (12.0-15.0); Lymphocytes % (A) 30.7 %; MCH 29.7 pg (27.0-32.0); MCV 89.9 fL (80.0-97.0); Mean Platelet Volume 10.2 fL (9.5-12.2); Monocytes # (A) 0.72 10*3/uL (0.20-1.00); Neutrophils # (A) 2.82 10*3/uL (1.80-7.70); Neutrophils % (A) 50.8 %; Platelet Count 180 10*3/uL (140-440); RBC 3.77 10*6/uL (4.10-5.20); RDW 13.5 % (11.5-14.5); WBC 5.54 10*3/uL (4.50-10.00)
[2025-04-14 21:38] LABS: ALT 20 U/L (4-34); AST 27 U/L (14-36); African American GFR (CKD) 84 (>60 ml/min/1.73 sqM); Albumin 3.7 g/dL (3.5-5.0); Alkaline Phosphatase 85 U/L (38-126); Anion Gap 7 mmol/L; Blood Urea Nitrogen 23 mg/dL (7-17); Calcium 9.2 mg/dL (8.4-10.2); Carbon Dioxide 22 mmol/L (22-30); Chloride 108 mmol/L (98-107); Glucose 104 mg/dL (74-99); Non-African American GFR(CKD) 73 (>60 ml/min/1.73 sqM); Potassium 3.9 mmol/L (3.5-5.1); Sodium 137 mmol/L (137-145); Total Bilirubin 0.3 mg/dL (0.2-1.3); Total Protein 6.1 g/dL (6.3-8.2)
--- NOTE | 2025-04-14 21:41 | XR ---
EXAMINATION TYPE: XR chest 2V DATE OF EXAM: 04/14/2025 9:16 PM COMPARISON: Chest radiographs from 04/30/2022 CLINICAL INDICATION: Female, 85 years old with history of Chest Pain; TECHNIQUE: XR chest 2V Frontal and lateral views of the chest. FINDINGS: Lungs/Pleura: There is no evidence of pleural effusion, focal consolidation, or pneumothorax. Pulmonary vascularity: Unremarkable. Heart/mediastinum: Cardiomediastinal silhouette is unremarkable. Two lead cardiac conduction device o verlying the left hemithorax with lead tips projecting over the right ventricle and right atrium. Musculoskeletal: No acute osseous pathology. IMPRESSION: No acute cardiopulmonary disease/process. [facility], , 04/14/2025 9:39 PM
[2025-04-14 21:48] LABS: INR 0.9 (<1.2); Prothrombin Time 10.1 sec (10.0-12.5)
--- NOTE | 2025-04-14 22:06 | ED ---
Chest Pain HPI - General Chief Complaint: Chest Pain Stated Complaint: Chest Pressure/Back Pain Time Seen by Provider: 04/14/25 20:48 Source: patient, family Mode of arrival: wheelchair Limitations: no limitations - History of Present Illness Initial Comments: This patient is an 85-year-old woman who is here to have evaluation of substernal chest pain that does radiate towards her back. She states that it is moderate intensity, sharp in character at times aching. She has not noted worsening or relieving factors. There were no accompanying symptoms. MD Complaint: chest pain -: hour(s) Onset: during rest Pain Location: substernal Pain Radiation: back Severity: moderate Quality: aching, sharp Consistency: constant Improves With: nothing Worsens With: nothing Treatments Prior to Arrival: none - Related Data Home Medications Medication Instructions Recorded Confirmed Pantoprazole [Protonix] 40 mg PO DAILY 08/09/18 04/21/23 Naproxen Sodium [Aleve] 440 mg PO BID PRN 11/17/18 04/21/23 Calcium Carbonate/Vitamin D3 1 tab PO HS 04/30/22 04/17/23 [Calcium 500-Vit D3 15 Mcg (600 Iu)] Fludrocortisone [Florinef] 0.1 mg PO QAM 04/30/22 04/21/23 Allergies Allergy/AdvReac Type Severity Reaction Status Date / Time amoxicillin [From Augmentin] Allergy Unknown Verified 04/18/25 10:35 cephalexin Allergy Unknown Verified 04/18/25 10:35 clavulanic acid Allergy Unknown Verified 04/18/25 10:35 [From Augmentin] Review of Systems ROS Statement: Those systems with pertinent positive or pertinent negative responses have been documented in the HPI. ROS Other: All systems not noted in ROS Statement are negative. Constitutional: Denies: fever, chills Respiratory: Denies: cough, dyspnea Cardiovascular: Denies: chest pain, palpitations, edema Gastrointestinal: Denies: abdominal pain, nausea, vomiting, diarrhea Genitourinary: Denies: dysuria, hematuria Musculoskeletal: Denies: back pain Skin: Denies: rash Neurological: Denies: headache, weakness Past Medical History Past Medical History: Eye Disorder, GERD/Reflux, Osteoarthritis (OA), Thyroid Disorder Additional Past Medical History / Comment(s): hiatal hernia, sodium imbalance Last Myocardial Infarction Date:: unknown History of Any Multi-Drug Resistant Organisms: None Reported Past Surgical History: Back Surgery, Joint Replacement, Orthopedic Surgery, Pacemaker Additional Past Surgical History / Comment(s): alice hip replacements, rt hip revision, alice foot surgeries, cataract surg left knee replacement 11/23/18 right knee replacement, laminectomu Past Anesthesia/Blood Transfusion Reactions: Motion Sickness Type of Cardiac Device: Permanent Pacemaker Device Placement Date:: 12/27/11 Past Psychological History: No Psychological Hx Reported Smoking Status: Former smoker Past Alcohol Use History: Rare Past Drug Use History: None Reported - Past Family History Father Family Medical History: Myocardial Infarction (MT) Mother Family Medical History: No Reported History General Exam Limitations: no limitations General appearance: alert, in no apparent distress Head exam: Present: atraumatic, normocephalic Eye exam: Present: normal appearance. Absent: scleral icterus, conjunctival injection Neck exam: Present: normal inspection Respiratory exam: Present: normal lung sounds bilaterally. Absent: respiratory distress, wheezes, rales, rhonchi, stridor, accessory muscle use Cardiovascular Exam: Present: regular rate, normal rhythm, normal heart sounds. Absent: systolic murmur, diastolic murmur, rubs, gallop GI/Abdominal exam: Present: soft. Absent: distended, tenderness, guarding, rebound, rigid, mass Extremities exam: Present: normal inspection, normal capillary refill. Absent: pedal edema, calf tenderness Back exam: Present: normal inspection. Absent: CVA tenderness (R), CVA tenderness (L) Neurological exam: Present: alert Skin exam: Present: warm, dry, intact, normal color. Absent: rash Course Vital Signs 04/14/25 04/14/25 20:32 22:28 Temperature 97.6 F Pulse Rate 74 79 Respiratory 18 18 Rate Blood Pressure 153/92 164/82 O2 Sat by Pulse 98 97 Oximetry Chest Pain MDM - MDM The patient had chest x-ray that I interpreted as negative for acute infiltrate, pneumothorax, congestive heart failure Was pt. sent in by a medical professional or institution (, PA, FUSE ASSEMBLER, urgent care, hospital, or correction...) When possible be specific @ -[No] Did you speak to anyone other than the patient for history (EMS, parent, family, police, friend...)? What history was obtained from this source @ -[No] Did you review nursing and triage notes (agree or disagree)? Why? @ -[I reviewed and agree with nursing and triage notes] Were old charts reviewed (outside hosp., previous admission, EMS record, old EKG, old radiological studies, urgent care reports/EKG's, correction records)? Report findings @ -[No old charts were reviewed] Differential Diagnosis (chest pain, altered mental status, abdominal pain women, abdominal pain men, vaginal bleeding, weakness, fever, dyspnea, syncope, headache, dizziness, GI bleed, back pain, seizure, CVA, palpatations, mental health, musculoskeletal)? @ -[Differential Chest Pain: Stable Angina, Unstable Angina, STEMI, NSTEMI Aortic Dissection, Pneumothorax, Musculoskeletal, Esophageal Spasm GERD, Cholecystitis, Pancreatitis, Zoster, this is not meant to be an all-inclusive list. EKG interpreted by me (3pts min.). @ -[I interpreted as above] X-rays interpreted by me (1pt min.). @ -I interpreted as above CT interpreted by me (1pt min.). @ -[None done] U/S interpreted by me (1pt. min.). @ -[None done] What testing was considered but not performed or refused? (CT, X-rays, U/S, labs)? Why? @ -[None] What meds were considered but not given or refused? Why? @ -[None] Did you discuss the management of the patient with other professionals (professionals i.e. , PA, FUSE ASSEMBLER, lab, RT, psych nurse, high school social studies teacher, director maternal child, teacher, credit risk officer, vocational case manager)? Give summary @ -[No] Was smoking cessation discussed for >3mins.? @ -[No] Was critical care preformed (if so, how long)? @ -[No] Were there social determinants of health that impacted care today? How? (Homelessness, low income, unemployed, alcoholism, drug addiction, transportation, low edu. Level, literacy, decrease access to med. care, care home, re hab)? @ -[No] Was there de-escalation of care discussed even if they declined (Discuss DNR or withdrawal of care, Hospice)? DNR status @ -[No] What co-morbidities impacted this encounter? (DM, HTN, Smoking, COPD, CAD, Cancer, CVA, ARF, Chemo, Hep., AIDS, mental health diagnosis, sleep apnea, morbid obesity)? @ -[None] Was patient admitted / discharged? Hospital course, mention meds given and ro yaron, prescriptions, significant lab abnormalities, going to OR and other pertinent info. @ -[Patient is an 85-year-old woman here to have evaluation of chest pain. The patient's symptoms did resolve spontaneously. The patient's workup here is not indicative of acute ischemia. The patient is offered admission to have telemetry monitoring and serial cardiac enzymes as well as cardiology evaluati on. She states she is feeling better and would like to go home. We discussed appropriate further care and follow-up as well as return parameters. Undiagnosed new problem with uncertain prognosis? @ -[No] Drug Therapy requiring intensive monitoring for toxicity (Heparin, Nitro, Insulin, Cardizem)? @ -[No] Were any procedures done? @ -[No] Diagnosis/symptom? @ -Acute chest pain Acute, or Chronic, or Acute on Chronic? @ -[Acute Uncomplicated (without systemic symptoms) or Complicated (systemic symptoms)? @ -[Uncomplicated Side effects of treatment? @ -[No] Exacerbation, Progression, or Severe Exacerbation? @ -[No] Poses a threat to life or bodily function? How? (Chest pain, [place], MT, pneumonia, PE, COPD, DKA, ARF, appy, cholecystitis, CVA, Diverticulitis, Homicidal, Suicidal, threat to staff... and all critical care pts) @ -[Undetermined at this point requires further cardiology follow-up All treatments are based on ideal body weight as in ED triage Disposition Clinical Impression: Back pain Disposition: HOME SELF-CARE Condition: Good Instructions (If sedation given, give patient instructions): Back Pain (ED) Additional Instructions: As we discussed, return should you have any recurrence of symptoms or new symptoms develop. Call the supervisor assembly room office and let them know that you are in to consider having new stress test. Is patient prescribed a controlled substance at d/c from ED?: No Referrals: Inderjit Santos MD [Primary Care Provider] - 1-2 days
[2025-04-14 22:29] VITALS: BP 164/82; PULSE 79
== END 2025-04-14 22:29 | disposition home or self-care (01) ==
LOC: EC 20:29
DX: R07.89 Other chest pain (principal); Z87.891 Personal history of nicotine dependence; Z88.0 Allergy status to penicillin; Z88.1 Allergy status to other antibiotic agents
CPT/HCPCS: 36415; 71046; 80053; 83735; 84484; 85025; 85379; 85610; 85730; 93005; 99285